=== PATIENT | male | born 1945 | race African-American/Black ===

== ENCOUNTER 2019-10-26 17:42 | Inpatient (IN) | payer MEDICARE, OTHER ==
--- NOTE | 2019-10-26 17:49 | PDOC ---
Rapid Medical Evaluation Time Seen by Provider: 10/26/19 17:43 Medical Evaluation: 10/26/19 17:44 74 year old male pmhx of DM, HTN, HLD presenting with weakness and dizziness for 2 hours. states he almost syncopized. Also had associated vision changes. Pts also states he may not be compliant with DM medicines. No N/V/F/C PE: CTA RRR Benign Neuro Exam Plan: ACS vs DKA EKG CXR Labs Pt to precede to main ED for further treatment and care 10/26/19 17:51
[2019-10-26 18:08] VITALS: BMI 31.6
[2019-10-26 18:29] LABS: BASO % 0.4 % (0-2.0); EOS % 1.2 % (0-4.5); HEMATOCRIT 37.4 % (35.4-49); HEMOGLOBIN 12.7 GM/dL (11.7-16.9); LYMPH % 40.2 % (8-40); MCH 30.9 pg (25.7-33.7); MCHC 33.8 g/dl (32.0-35.9); MEAN CELL VOLUME 91.3 fl (80-96); MEAN PLT VOLUME 8.8 fl (7.5-11.1); MONO % 7.2 % (3.8-10.2); PLATELET COUNT 218 K/MM3 (134-434); RDW 14.1 % (11.9-15.9); VENOUS BASE EXCESS -4.8 mmol/L (-2-2); VENOUS O2 SATURATION 89.5 % (70-80); VENOUS PCO2 38.2 mmHg (38-52); VENOUS PH 7.345 (7.310-7.410)
--- NOTE | 2019-10-26 18:40 | PDOC ---
Attending Attestation - Resident Resident Name: Reinaldo Reyes - ED Attending Attestation I have performed the following: I have examined & evaluated the patient, The case was reviewed & discussed with the resident, I agree w/resident's findings & plan, Exceptions are as noted - HPI HPI: 10/26/19 18:48 74yo M hx CKD, HTN DM, HLD presents to the ED with acute onset of L sided weakness, blurry vision, - Medical Decision Making 10/26/19 18:52 74yo M presents to the ED with resolved L sided weakness, blurry vision, an DDx includes TIA vs infectious pathology vs metabolic disarray. FS 239, unlikely DKA or HHS CTH with no acute findings Plan for labs, UA, CXR Anticipate admission
[2019-10-26 18:49] LABS: INR 1.02 (0.83-1.09)
[2019-10-26 18:51] LABS: ACTIVATED PTT 29.8 SECONDS (25.2-36.5)
[2019-10-26 19:02] LABS: ALK PHOS 83 U/L (45-117); ANION GAP 7 MMOL/L (8-16); BILIRUBIN,TOTAL 0.4 mg/dL (0.2-1); BLOOD UREA NITROGEN 23.6 mg/dL (7-18); CALCIUM 9.1 mg/dL (8.5-10.1); CHLORIDE 106 mmol/L (98-107); CO2 25 mmol/L (21-32); CREATININE 1.7 mg/dL (0.55-1.3); GLUCOSE,RANDOM 263 mg/dL (74-106); N-TERMINAL BNP 52.4 pg/ml (5-125); POTASSIUM 4.3 mmol/L (3.5-5.1); SGOT/AST 28 U/L (15-37); SGPT/ALT 41 U/L (13-61); SODIUM 138 mmol/L (136-145); TOT PROT 7.5 g/dl (6.4-8.2)
[2019-10-26 19:44] LABS: CHOLESTEROL 141 mg/dL (50-200); HDL CHOLESTEROL 55 mg/dL (40-60); LDL CHOLESTEROL (ONLY SJRH) 79 mg/dL (5-100); TRIGLYCERIDES 142 mg/dL (0-150)
--- NOTE | 2019-10-26 19:53 | PDOC ---
History of Present Illness - General Chief Complaint: Lightheaded Stated Complaint: DIZZINESS Time Seen by Provider: 10/26/19 17:43 - History of Present Illness Initial Comments: 10/26/19 19:49 74yo M w/ pmh HTN, DM2, poor medicine compliance, and HDL p/w weakness L>R + blurry vision x1.5hours today. [place] the [place]/ and felt weak, especially in his lower extremities. He thought low sugar, so he ate something and went home w/ . At home he felt much weaker, L>>R. He then came to the hospital. +Blurry vision since yesterday. Now resolved. denies facial asymmetry, loss of balance, Pt denies n/v/diarrhea/similar episodes, aphasia, ataxia, vision loss. Denies recent fevers, cough, rashes, sore throat, Pt states he is prescribed a DM medicine that gives him palpitations, so he hasn't taken it in >3weeks and his palpitations have been absent for at least 1 week. PMH: HTN, DM2, HDL PSH: remote hernia FHx: CVA in immediate family SHx: denies smoking, EtOH, illicit drug use. Rx: Glypizide, losartan, ramiril, jiardiance, metoprolol allergies: NKA NIHSS score of 2 +1 for limb ataxia (L heel to barton was not as straight as was the R) + for limb sensation (LLE sensation was decreased compared to RLE) ROS ROS CONSTITUTIONAL: Absent: fever, chills, diaphoresis HEENT: Absent: rhinorrhea, nasal congestion, throat pain CARDIOVASCULAR: Absent: chest pain, syncope, palpitations, irregular heart rate, lightheadedness, peripheral edema RESPIRATORY: Absent: cough, shortness of breath, dyspnea with exertion, GASTROINTESTINAL: Absent: abdominal pain, abdominal distension, nausea, vomiting, diarrhea, constipation, GENITOURINARY: Absent: dysuria, frequency, urgency, hesitancy, hematuria, flank pain MUSCULOSKELETAL: Absent: myalgia, arthralgia, joint swelling SKIN: Absent: rash, itching, pallor NEUROLOGIC: Absent: headache, bladder or bowel incontinence PSYCHIATRIC: Absent: anxiety, depression, suicidal or homicidal ideation, hallucinations. PE GENERAL: Well developed, well nourished. Awake and alert. No acute distress. HEENT: Normocephalic, atraumatic. PERRLA, EOMI. No conjunctival pallor. Sclera are non- icteric. Moist mucous membranes. Oropharynx is clear. NECK: Supple. Full ROM. No JVD. No thyromegaly. No lymphadenopathy. CARDIOVASCULAR: Regular rate and rhythm. No murmurs, rubs, or gallops. Distal pulses are 2+ and symmetric. PULMONARY: No evidence of respiratory distress. Lungs clear to auscultation bilaterally. No wheezing, rales or rhonchi. ABDOMINAL: Soft. Non-tender. Non-distended. No rebound or guarding. No organomegaly. Normoactive bowel sounds. MUSCULOSKELETAL Normal range of motion at all joints. No bony deformities or tenderness. No CVA tenderness. EXTREMITIES: No cyanosis. No clubbing. No edema. No calf tenderness. SKIN: Warm and dry. Normal capillary refill. No rashes. No jaundice. NEUROLOGICAL: NEURO: Mental status: The patient is oriented x3. Cranial nerves: Cranial nerves II through XII are intact Motor: The upper extremities are 5 over 5 in all muscle groups. The lower extremities are 5 over 5 in all muscle groups. Sensation: Sensation is intact to light touch in upper extremities and Compared to RLE, slightly decreased in LLE. Cerebellar: Zghbrq-swtqko-jnho is normal in both upper extremities. Bscf-atmo-[id number] is normal in RLE lower extremity and hesitant on LLE Reflexes: Negative Babinski test Gait: normal and Tandem gait deferred PSYCHIATRIC: Cooperative. Good eye contact. Appropriate mood and affect. Plan: 1. Consult Neurology 2. Admit for cardiac and neurological assessment. 10/26/19 19:54 10/26/19 20:52 CONSTITUTIONAL: Absent: fever, chills, diaphoresis, generalized weakness, malaise, loss of appetite HEENT: Absent: rhinorrhea, nasal congestion, throat pain, throat swelling, difficulty swallowing, mouth swelling, ear pain, eye pain, visual Changes CARDIOVASCULAR: Absent: chest pain, syncope, palpitations, irregular heart rate, lighthea dedness, peripheral edema RESPIRATORY: Absent: cough, shortness of breath, dyspnea with exertion, orthopnea, wheezing, stridor, hemoptysis GASTROINTESTINAL: Absent: abdominal pain, abdominal distension, nausea, vomiting, diarrhea, constipation, melena, hematochezia GENITOURINARY: Absent: dysuria, frequency, urgency, hesitancy, hematuria, flank pain, genital pain MUSCULOSKELETAL: Absent: myalgia, arthralgia, joint swelling SKIN: Absent: rash, itching, pallor HEMATOLOGIC/IMMUNOLOGIC: Absent: easy bleeding, easy bruising, lymphadenopathy, frequent infections ENDOCRINE: Absent: unexplained weight gain, unexplained weight loss, heat intolerance, cold intolerance NEUROLOGIC: Absent: headache, focal weakness or paresthesias, dizziness, unsteady gait, seizure, mental status changes, bladder or bowel incontinence 10/26/19 21:05 10/26/19 21:29 10/26/19 21:32 10/26/19 23:37 Past History - Medical History Allergies/Adverse Reactions: Allergies Allergy/AdvReac Type Severity Reaction Status Date / Time No Known Allergies Allergy Verified 10/26/19 17:46 Home Medications: Ambulatory Orders Atorvastatin Ca [Lipitor] 10 mg PO HS 10/26/19 Empagliflozin [Jardiance] 25 mg PO DAILY 10/26/19 Glipizide/Metformin HCl [Glipizide-Metformin 5-500 mg] 1 each PO TID 10/26/19 Ramipril 5 mg PO DAILY 10/26/19 Semaglutide [Ozempic] 1 mg SQ DAILY 10/26/19 COPD: No Diabetes: Yes HTN: Yes Other medical history: HLD - Psycho-Social/Smoking History Smoking History: Never smoked - Substance Abuse Hx (Audit-C & DAST Scrn) How often the patient has a drink containing alcohol: Never Score: In Men: 4 or > Positive; In Women: 3 or > Positive: 0 Screen Result (Pos requires Nsg. Audit-10AR): Negative In the last yr the pt used illegal drug/Rx for NonMed reason: No Score: Yes response is considered Positive: 0 Screen Result (Positive result requires Nsg. DAST-10): Negative *Physical Exam - Vital Signs Last Vital Signs Temp Pulse Resp BP Pulse Ox 97.9 F 72 18 116/51 L 99 10/26/19 17:44 10/26/19 17:44 10/26/19 17:44 10/26/19 17:44 10/26/19 17:44 ED Treatment Course - LABORATORY CBC & Chemistry Diagram: 10/26/19 18:00 10/26/19 18:00 - ADDITIONAL ORDERS Additional order review: Laboratory Results 10/26/19 10/26/19 10/26/19 18:42 18:00 18:00 PT with INR INR PTT (Actin FS) VBG pH POC VBG pCO2 POC VBG pO2 VBG HCO3 VBG O2 Sat (Nicol) VBG Base Excess Sodium 138 Potassium 4.3 Chloride 106 Carbon Dioxide 25 Anion Gap 7 L BUN 23.6 H Creatinine 1.7 H Est GFR (CKD-EPI)AfAm 45.04 Est GFR (CKD-EPI)NonAf 38.86 POC Glucometer 239 Random Glucose 263 H Calcium 9.1 Total Bilirubin 0.4 AST 28 ALT 41 Alkaline Phosphatase 83 Creatine Kinase 203 Creatine Kinase Index 0.7 CK-MB (CK-2) 1.5 Troponin I < 0.02 B-Natriuretic Peptide 52.4 Total Protein 7.5 Albumin 4.0 Triglycerides 142 Cholesterol 141 Total LDL Cholesterol 79 HDL Cholesterol 55 Beta-Hydroxybutyrate 1.9 10/26/19 10/26/19 18:00 18:00 PT with INR 12.00 INR 1.02 PTT (Actin FS) 29.8 VBG pH 7.345 POC VBG pCO2 38.2 POC VBG pO2 59.3 H VBG HCO3 20.4 L VBG O2 Sat (Nicol) 89.5 H VBG Base Excess -4.8 L Sodium Potassium Chloride Carbon Dioxide Anion Gap BUN Creatinine Est GFR (CKD-EPI)AfAm Est GFR (CKD-EPI)NonAf POC Glucometer Random Glucose Calcium Total Bilirubin AST ALT Alkaline Phosphatase Creatine Kinase Creatine Kinase Index CK-MB (CK-2) Troponin I B-Natriuretic Peptide Total Protein Albumin Triglycerides Cholesterol Total LDL Cholesterol HDL Cholesterol Beta-Hydroxybutyrate 10/26/19 10/26/19 18:42 18:00 RBC 4.10 MCV 91.3 MCHC 33.8 RDW 14.1 MPV 8.8 Neutrophils % 51.0 D Lymphocytes % 40.2 H D Monocytes % 7.2 Eosinophils % 1.2 Basophils % 0.4 POC Glucometer 239 Discharge - Discharge Information Problems reviewed: Yes Clinical Impression/Diagnosis: TIA (transient ischemic attack) Condition: Stable - Admission Yes - Follow up/Referral - Patient Discharge Instructions - Post Discharge Activity
[2019-10-27 06:55] LABS: INR 0.99 (0.83-1.09); PROTHROMBIN TIME (PATIENT) 11.7 SEC (9.7-13.0)
[2019-10-27 06:58] LABS: ACTIVATED PTT 29.4 SECONDS (25.2-36.5)
--- NOTE | 2019-10-27 08:07 | HP ---
Admitting History and Physical - Primary Care Physician PCP: tessie cleveland - Admission History of Present Illness: 74yo M w/ pmh HTN, DM2, poor medicine compliance, and HDL p/w weakness L>R + blurry vision x1.5hours today. [place] the [place] w/ and felt weak, especi ally in his lower extremities. He thought low sugar, so he ate something and went home w/ . At home he felt much weaker, L>>R. He then came to the hospital. +Blurry vision since yesterday. Now resolved. denies facial asymmetry, loss of balance, Pt denies n/v/diarrhea/similar episodes, aphasia, ataxia, vision loss. Denies recent fevers, cough, rashes, sore throat, Pt states he is prescribed a DM medicine that gives him palpitations, so he hasn't taken it in >3weeks and his palpitations have been absent for at least 1 week. 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: Yes: Peripheral Neuropathy Renal/: Yes: Renal Failure Musculoskeletal: Yes: Chronic low back pain - Smoking History Smoking history: Never smoked Home Medications - Allergies Allergies/Adverse Reactions: Allergies Allergy/AdvReac Type Severity Reaction Status Date / Time No Known Allergies Allergy Verified 10/26/19 17:46 - Home Medications Home Medications: Ambulatory Orders Atorvastatin Ca [Lipitor] 10 mg PO HS 10/26/19 Empagliflozin [Jardiance] 25 mg PO DAILY 10/26/19 Glipizide/Metformin HCl [Glipizide-Metformin 5-500 mg] 1 each PO TID 10/26/19 Ramipril 5 mg PO DAILY 10/26/19 Semaglutide [Ozempic] 1 mg SQ DAILY 10/26/19 Physical Examination Vital Signs: Vital Signs Temperature 98.2 F 10/27/19 06:00 Pulse Rate 67 10/27/19 06:00 Respiratory Rate 19 10/27/19 06:00 Blood Pressure 153/66 10/27/19 06:00 O2 Sat by Pulse Oximetry (%) 99 10/26/19 23:00 Labs: CBC, BMP 10/26/19 18:00 10/26/19 18:00 Problem List - Problems (1) Amaurosis fugax Code(s): G45.3 - AMAUROSIS FUGAX (2) BPH (benign prostatic hyperplasia) Code(s): N40.0 - BENIGN PROSTATIC HYPERPLASIA WITHOUT LOWER URINRY TRACT SYMP (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 (4) CVA (cerebral vascular accident) Code(s): I63.9 - CEREBRAL INFARCTION, UNSPECIFIED (5) Diabetes Code(s): E11.9 - TYPE 2 DIABETES MELLITUS WITHOUT COMPLICATIONS (6) Diabetic retinopathy Code(s): E11.319 - TYPE 2 DIABETES W UNSP DIABETIC RTNOP W/O MACULAR EDEMA (7) Raised prostate specific antigen Code(s): R97.20 - ELEVATED PROSTATE SPECIFIC ANTIGEN [PSA] (8) Renal failure (ARF), acute on chronic Code(s): N17.9 - ACUTE KIDNEY FAILURE, UNSPECIFIED; N18.9 - CHRONIC KIDNEY DISEASE, UNSPECIFIED (9) TIA (transient ischemic attack) Code(s): G45.9 - TRANSIENT CEREBRAL ISCHEMIC ATTACK, UNSPECIFIED Assessment/Plan (1) CVA (cerebral vascular accident) Code(s): I63.9 - CEREBRAL INFARCTION, UNSPECIFIED (2) Diabetes Code(s): E11.9 - TYPE 2 DIABETES MELLITUS WITHOUT COMPLICATIONS (3) Renal failure (ARF), acute on chronic Code(s): N17.9 - ACUTE KIDNEY FAILURE, UNSPECIFIED; N18.9 - CHRONIC KIDNEY DISEASE, UNSPECIFIED (4) Diabetic retinopathy Code(s): E11.319 - TYPE 2 DIABETES W UNSP DIABETIC RTNOP W/O MACULAR EDEMA (5) BPH (benign prostatic hyperplasia) Code(s): N40.0 - BENIGN PROSTATIC HYPERPLASIA WITHOUT LOWER URINRY TRACT SYMP (6) Raised prostate specific antigen Code(s): R97.20 - ELEVATED PROSTATE SPECIFIC ANTIGEN [PSA] (7) 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
[2019-10-27 10:14] LABS: URINE APPEARANCE Error; URINE BILIRUBIN NEGATIVE (NEGATIVE); URINE COLOR YELLOW; URINE GLUCOSE (UA) 3+ (NEGATIVE); URINE KETONE NEGATIVE (NEGATIVE); URINE LEUK ESTERASE NEGATIVE (NEGATIVE); URINE NITRITE NEGATIVE (NEGATIVE); URINE PROTEIN NEGATIVE (NEGATIVE); URINE UROBILINOGEN 0.2 mg/dL (0.2-1.0)
[2019-10-27] MEDS: ASPIRIN COATED 81 MG TABLET.EC PO SCH (10:35)
[2019-10-27] MEDS: SODIUM CHLORIDE 0.45% IV SCH (10:36)
--- NOTE | 2019-10-27 15:31 | CON.NEURO ---
Consult - Smoking History Smoking history: Never smoked Home Medications - Allergies Allergies/Adverse Reactions: Allergies Allergy/AdvReac Type Severity Reaction Status Date / Time No Known Allergies Allergy Verified 10/26/19 17:46 - Home Medications Home Medications: Ambulatory Orders Atorvastatin Ca [Lipitor] 10 mg PO HS 10/26/19 Empagliflozin [Jardiance] 25 mg PO DAILY 10/26/19 Glipizide/Metformin HCl [Glipizide-Metformin 5-500 mg] 1 each PO TID 10/26/19 Ramipril 5 mg PO DAILY 10/26/19 Semaglutide [Ozempic] 1 mg SQ DAILY 10/26/19 Physical Exam-Neuro Vital Signs: Vital Signs Temperature 97.7 F 10/27/19 13:53 Pulse Rate 88 10/27/19 13:53 Respiratory Rate 18 10/27/19 13:53 Blood Pressure 148/64 10/27/19 13:53 O2 Sat by Pulse Oximetry (%) 98 10/27/19 13:53 Labs: CBC, BMP 10/26/19 18:00 10/26/19 18:00 INR, PTT INR 0.99 (0.83-1.09) 10/27/19 06:25 Assessment/Plan cc Possible TIA HPI 74 year old male history of HTN,DM . He denies history of cad, stroke or smoking. pateint was in mall with hiswife and feelt dizzy, weak in his leg. andthere was more weakness on left side than right, and blurring of vision. His symptoms lasted for two hours. He ate sugare without any significant relief, and whenhewas not feeling better he came othospital. There was no other focal neurological syptoms, no prior episode before. His initial ct head wasnormal. Allergies/Adverse Reactions: Allergies Allergy/AdvReac Type Severity Reaction Status Date / Time No Known Allergies Allergy Verified 10/26/19 17:46 Home Medications: Atorvastatin Ca [Lipitor] 10 mg PO HS 10/26/19 Empagliflozin [Jardiance] 25 mg PO DAILY 10/26/19 Glipizide/Metformin HCl [Glipizide-Metformin 5-500 mg] 1 each PO TID 10/26/19 Ramipril 5 mg PO DAILY 10/26/19 Semaglutide [Ozempic] 1 mg SQ DAILY 10/26/19 ROS,FH,SH reviwed in chart NEUROLOGICAL EXAMINATION Alert oriented x 3 speech is normal, vss eomi, pupils reactive no face asymmetry motor 5/5 all ext sensation is normal ct head and carotid ultrasound isnormal mri ofbrain isnormal Assessment/Plan Transient neurological symptoms( weakness in leg, L>R, Blurring of vision) , likely to be tia, so far work up negative. symptoms resolved. ct head, neuro exam and carotid ultrasound is normal. mr ofbrain is pending. Plan: continue statin , aspirin - mri ofbrain - life style modifications, stroke education - if mri of brain is normal, patient can be discharged home. Thanking you so much Moisés Mays MD
[2019-10-27] MEDS: glyBURIDE 5 MG TABLET PO SCH (15:54)
[2019-10-27] MEDS ORDERED: PT OWN MED DRAWER 7, Y5N ONE (16:37)
[2019-10-27] MEDS: ATORVASTATIN CA 20 MG TABLET (FP) PO SCH (22:38)
[2019-10-28] MEDS ORDERED: PT OWN MED DRAWER 7, Y5N ONE ×2 (04:58→17:02)
[2019-10-28] MEDS: glyBURIDE 5 MG TABLET PO SCH ×2 (06:38→17:07)
[2019-10-28] MEDS ORDERED: TAMSULOSIN HCL 0.4 MG CAP PO SCH (08:30)
[2019-10-28] MEDS: ASPIRIN COATED 81 MG TABLET.EC PO SCH (09:11)
[2019-10-28] MEDS: TAMSULOSIN HCL 0.4 MG CAP PO SCH (09:11)
[2019-10-28] MEDS: SODIUM CHLORIDE 0.45% IV SCH (09:12)
--- NOTE | 2019-10-28 13:32 | PN ---
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 No Fever No SOB Pt is still in isolation pending COVID-19 Test results No Chest pain - Current Medication List Current Medications: Active Medications Aspirin (Ecotrin -) 81 mg PO DAILY [facility] Last Admin: 10/28/19 09:11 Dose: 81 mg Documented by: Atorvastatin Calcium (Lipitor -) 20 mg PO HS [facility] Last Admin: 10/27/19 22:38 Dose: 20 mg Documented by: Glyburide (Diabeta -) 5 mg PO BID@0700,1630 [facility] Last Admin: 10/28/19 06:38 Dose: 5 mg Documented by: Sodium Chloride (1/2 Normal Saline) 1,005 mls @ 75 mls/hr IV ASDIR [facility] Last Admin: 10/28/19 09:12 Dose: Not Given Documented by: Metoprolol Succinate (Toprol Xl -) 50 mg PO DAILY [facility] Last Admin: 10/28/19 09:11 Dose: 50 mg Documented by: Sitagliptin Phosphate (Januvia -) 100 mg PO DAILY@0700 [facility] Last Admin: 10/28/19 06:38 Dose: 100 mg Documented by: Tamsulosin HCl (Flomax -) 0.4 mg PO DAILY@0830 [facility] Last Admin: 10/28/19 09:11 Dose: 0.4 mg Documented by: - Objective Vital Signs: Vital Signs Temperature 98 F 10/28/19 06:00 Pulse Rate 76 10/28/19 06:00 Respiratory Rate 18 10/28/19 06:00 Blood Pressure 133/64 10/28/19 06:00 O2 Sat by Pulse Oximetry (%) 96 10/28/19 06:00 Constitutional: Yes: No Distress Eyes: Yes: Conjunctiva Clear, EOM Intact HENT: Yes: Atraumatic, Normocephalic Neck: Yes: Supple, Trachea Midline Cardiovascular: Yes: Regular Rate and Rhythm Respiratory: Yes: Regular, CTA Bilaterally Gastrointestinal: Yes: Normal Bowel Sounds, Soft Musculoskeletal: Yes: Joint Stiffness Edema: No Peripheral Pulses WNL: Yes Labs: CBC, BMP 10/26/19 18:00 10/26/19 18:00 INR, PTT INR 0.99 (0.83-1.09) 10/27/19 06:25 Problem List - Problems (1) CVA (cerebral vascular accident) Code(s): I63.9 - CEREBRAL INFARCTION, UNSPECIFIED (2) Diabetes Code(s): E11.9 - TYPE 2 DIABETES MELLITUS WITHOUT COMPLICATIONS (3) Renal failure (ARF), acute on chronic Code(s): N17.9 - ACUTE KIDNEY FAILURE, UNSPECIFIED; N18.9 - CHRONIC KIDNEY DISEASE, UNSPECIFIED (4) Diabetic retinopathy Code(s): E11.319 - TYPE 2 DIABETES W UNSP DIABETIC RTNOP W/O MACULAR EDEMA (5) BPH (benign prostatic hyperplasia) Code(s): N40.0 - BENIGN PROSTATIC HYPERPLASIA WITHOUT LOWER URINRY TRACT SYMP (6) Raised prostate specific antigen Code(s): R97.20 - ELEVATED PROSTATE SPECIFIC ANTIGEN [PSA] (7) 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 (8) Amaurosis fugax Code(s): G45.3 - AMAUROSIS FUGAX Assessment/Plan (1) CVA (cerebral vascular accident) Code(s): I63.9 - CEREBRAL INFARCTION, UNSPECIFIED (2) Diabetes Code(s): E11.9 - TYPE 2 DIABETES MELLITUS WITHOUT COMPLICATIONS (3) Renal failure (ARF), acute on chronic Code(s): N17.9 - ACUTE KIDNEY FAILURE, UNSPECIFIED; N18.9 - CHRONIC KIDNEY DISEASE, UNSPECIFIED (4) Diabetic retinopathy Code(s): E11.319 - TYPE 2 DIABETES W UNSP DIABETIC RTNOP W/O MACULAR EDEMA (5) BPH (benign prostatic hyperplasia) Code(s): N40.0 - BENIGN PROSTATIC HYPERPLASIA WITHOUT LOWER URINRY TRACT SYMP (6) Raised prostate specific antigen Code(s): R97.20 - ELEVATED PROSTATE SPECIFIC ANTIGEN [PSA] (7) 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 we will discuss with Regards Vasculitis work up/ Adding Plavix
[2019-10-28 15:39] LABS: BASO % 0.8 % (0-2.0); EOS % 1.6 % (0-4.5); HEMATOCRIT 38.4 % (35.4-49); HEMOGLOBIN 12.8 GM/dL (11.7-16.9); LYMPH % 33.8 % (8-40); MCH 30.6 pg (25.7-33.7); MCHC 33.4 g/dl (32.0-35.9); MEAN CELL VOLUME 91.6 fl (80-96); MEAN PLT VOLUME 8.5 fl (7.5-11.1); MONO % 6.1 % (3.8-10.2); NEUT % 57.7 % (42.8-82.8); PLATELET COUNT 219 K/MM3 (134-434); RBC 4.19 M/mm3 (4.00-5.60); RDW 14.2 % (11.9-15.9); WHITE BLOOD COUNT 8.1 K/mm3 (4.0-10.0)
[2019-10-28 16:13] LABS: BLOOD UREA NITROGEN 22.2 mg/dL (7-18); CALCIUM 9.2 mg/dL (8.5-10.1); CREATININE 1.6 mg/dL (0.55-1.3); POTASSIUM 4.1 mmol/L (3.5-5.1)
[2019-10-28] MEDS: ATORVASTATIN CA 20 MG TABLET (FP) PO SCH (21:28)
[2019-10-29] MEDS ORDERED: PT OWN MED DRAWER 7, Y5N ONE ×2 (06:29→16:06)
[2019-10-29] MEDS: glyBURIDE 5 MG TABLET PO SCH ×2 (07:04→16:10)
[2019-10-29 07:59] LABS: BASO % 0.4 % (0-2.0); EOS % 1.6 % (0-4.5); HEMATOCRIT 37.8 % (35.4-49); HEMOGLOBIN 12.6 GM/dL (11.7-16.9); LYMPH % 41.4 % (8-40); MCH 30.3 pg (25.7-33.7); MCHC 33.3 g/dl (32.0-35.9); MEAN PLT VOLUME 8.7 fl (7.5-11.1); MONO % 7.3 % (3.8-10.2); NEUT % 49.3 % (42.8-82.8); PLATELET COUNT 218 K/MM3 (134-434); RBC 4.15 M/mm3 (4.00-5.60); RDW 14.6 % (11.9-15.9)
[2019-10-29 08:03] LABS: BLOOD UREA NITROGEN 19.8 mg/dL (7-18); CREATININE 1.3 mg/dL (0.55-1.3); POTASSIUM 4.2 mmol/L (3.5-5.1)
[2019-10-29] MEDS: TAMSULOSIN HCL 0.4 MG CAP PO SCH (09:09)
[2019-10-29] MEDS: ASPIRIN COATED 81 MG TABLET.EC PO SCH (09:09)
[2019-10-29] MEDS: SODIUM CHLORIDE 0.45% IV SCH (09:09)
[2019-10-29 09:48] LABS: ERYTHROCYTE SEDIMENTATION RATE 32 mm/hr (0-20)
--- NOTE | 2019-10-29 15:15 | PN ---
Progress Note, Physician History of Present Illness: Pt has no more syncopal episodes No Fever No SOB No chest pain No palpiations - Current Medication List Current Medications: Active Medications Aspirin (Ecotrin -) 81 mg PO DAILY [facility] Last Admin: 10/29/19 09:09 Dose: 81 mg Documented by: Atorvastatin Calcium (Lipitor -) 20 mg PO HS [facility] Last Admin: 10/28/19 21:28 Dose: 20 mg Documented by: Glyburide (Diabeta -) 5 mg PO BID@0700,1630 [facility] Last Admin: 10/29/19 07:04 Dose: Not Given Documented by: Sodium Chloride (1/2 Normal Saline) 1,005 mls @ 75 mls/hr IV ASDIR [facility] Last Admin: 10/29/19 09:09 Dose: 75 mls/hr Documented by: Metoprolol Succinate (Toprol Xl -) 50 mg PO DAILY [facility] Last Admin: 10/29/19 09:09 Dose: 50 mg Documented by: Sitagliptin Phosphate (Januvia -) 100 mg PO DAILY@0700 [facility] Last Admin: 10/29/19 06:37 Dose: 100 mg Documented by: Tamsulosin HCl (Flomax -) 0.4 mg PO DAILY@0830 [facility] Last Admin: 10/29/19 09:09 Dose: 0.4 mg Documented by: - Objective Vital Signs: Vital Signs Temperature 97.9 F 10/29/19 05:05 Pulse Rate 70 10/29/19 05:05 Respiratory Rate 19 10/29/19 05:05 Blood Pressure 153/75 10/29/19 05:05 O2 Sat by Pulse Oximetry (%) 99 10/29/19 09:00 Constitutional: Yes: No Distress Eyes: Yes: Conjunctiva Clear, EOM Intact HENT: Yes: Atraumatic, Normocephalic Neck: Yes: Supple, Trachea Midline Cardiovascular: Yes: Regular Rate and Rhythm, S1, S2 Respiratory: Yes: Regular, CTA Bilaterally Gastrointestinal: Yes: Normal Bowel Sounds, Soft Musculoskeletal: Yes: Joint Stiffness Edema: No Peripheral Pulses WNL: Yes Neurological: Yes: Alert, Oriented, Cran Nerves II-XII Intact Labs: CBC, BMP 10/29/19 06:54 10/29/19 06:54 INR, PTT INR 0.99 (0.83-1.09) 10/27/19 06:25 Problem List - Problems (1) Amaurosis fugax Code(s): G45.3 - AMAUROSIS FUGAX (2) BPH (benign prostatic hyperplasia) Code(s): N40.0 - BENIGN PROSTATIC HYPERPLASIA WITHOUT LOWER URINRY TRACT SYMP (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 (4) CVA (cerebral vascular accident) Code(s): I63.9 - CEREBRAL INFARCTION, UNSPECIFIED (5) Diabetes Code(s): E11.9 - TYPE 2 DIABETES MELLITUS WITHOUT COMPLICATIONS (6) Diabetic retinopathy Code(s): E11.319 - TYPE 2 DIABETES W UNSP DIABETIC RTNOP W/O MACULAR EDEMA (7) Raised prostate specific antigen Code(s): R97.20 - ELEVATED PROSTATE SPECIFIC ANTIGEN [PSA] (8) Renal failure (ARF), acute on chronic Code(s): N17.9 - ACUTE KIDNEY FAILURE, UNSPECIFIED; N18.9 - CHRONIC KIDNEY DISEASE, UNSPECIFIED (9) TIA (transient ischemic attack) Code(s): G45.9 - TRANSIENT CEREBRAL ISCHEMIC ATTACK, UNSPECIFIED Assessment/Plan (1) CVA (cerebral vascular accident) Code(s): I63.9 - CEREBRAL INFARCTION, UNSPECIFIED (2) Diabetes Code(s): E11.9 - TYPE 2 DIABETES MELLITUS WITHOUT COMPLICATIONS (3) Renal failure (ARF), acute on chronic Code(s): N17.9 - ACUTE KIDNEY FAILURE, UNSPECIFIED; N18.9 - CHRONIC KIDNEY DISEASE, UNSPECIFIED (4) Diabetic retinopathy Code(s): E11.319 - TYPE 2 DIABETES W UNSP DIABETIC RTNOP W/O MACULAR EDEMA (5) BPH (benign prostatic hyperplasia) Code(s): N40.0 - BENIGN PROSTATIC HYPERPLASIA WITHOUT LOWER URINRY TRACT SYMP (6) Raised prostate specific antigen Code(s): R97.20 - ELEVATED PROSTATE SPECIFIC ANTIGEN [PSA] (7) 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
[2019-10-29] MEDS ORDERED: CLOPIDOGREL BISULFATE 75 MG TABLET (FP) PO SCH (15:30)
[2019-10-29] MEDS: ATORVASTATIN CA 20 MG TABLET (FP) PO SCH (21:46)
[2019-10-30] MEDS ORDERED: PT OWN MED DRAWER 7, Y5N ONE ×2 (06:25→16:18)
[2019-10-30] MEDS: glyBURIDE 5 MG TABLET PO SCH ×2 (06:28→16:51)
[2019-10-30] MEDS: ASPIRIN COATED 81 MG TABLET.EC PO SCH (09:05)
[2019-10-30] MEDS: TAMSULOSIN HCL 0.4 MG CAP PO SCH (09:05)
--- NOTE | 2019-10-30 10:24 | EKG ---
Test Reason : Blood Pressure : / mmHG Vent. Rate : 074 BPM Atrial Rate : 074 BPM P-R Int : 214 ms QRS Dur : 074 ms QT Int : 388 ms P-R-T Axes : 055 -09 071 degrees QTc Int : 430 ms SINUS RHYTHM WITH 1ST DEGREE A-V BLOCK POSSIBLE LEFT ATRIAL ENLARGEMENT LEFT VENTRICULAR HYPERTROPHY CANNOT RULE OUT SEPTAL INFARCT , AGE UNDETERMINED ABNORMAL ECG NO PREVIOUS ECGS AVAILABLE Confirmed by Olga Malloy ([id number]) on 10/30/2019 10:23:34 AM Referred By: Confirmed By:Olga Malloy
--- NOTE | 2019-10-30 10:49 | ECHO ---
Name: DG GONZALEZ Exam:Adult Echocardiogram Study Date: 10/30/2019 08:49 AM Age: 74 yrs Reason For Study: h/o TIA/CVA r/o mural thrombus dr raju pmd MMode/2D Measurements & Calculations IVSd: 1.1 cm Ao root diam: 2.9 cm LVIDd: 3.4 cm LA dimension: 3.8 cm LVIDs: 2.4 cm ACS: 1.5 cm LVPWd: 1.3 cm LVPWs: 1.8 cm EDV(Teich): 46.3 ml ESV(Teich): 20.4 ml LVOT diam: 1.9 cm LAV (MOD-bp): 54.0 ml RV S Chalino: 12.7 cm/sec Doppler Measurements & Calculations MV E max chalino: 80.5 cm/sec Ao V2 max: 195.5 cm/sec MV A max chalino: 103.2 cm/sec Ao max P.3 mmHg MV E/A: 0.78 INDERJIT(V,D): 1.5 cm2 MV dec time: 0.20 sec LV V1 max P.3 mmHg PA V2 max: 123.5 cm/sec LV V1 max: 103.7 cm/sec PA max P.1 mmHg Med Peak E' Chalino: 6.6 cm/sec Med E/e': 12.2 Lat Peak E' Chalino: 11.0 cm/sec Lat E/e': 7.3 Procedure Study Quality: Fair. Left Ventricle The left ventricle is normal in size. There is borderline concentric left ventricular hypertrophy. Th e left ventricular ejection fraction is normal. Ejection Fraction = 55-60%. The transmitral spectral Doppler flow pattern is suggestive of impaired LV relaxation. Right Ventricle The right ventricle is normal in size and function. Atria Normal left and right atrial size and function. Mitral Valve The mitral valve is grossly normal. There is no mitral regurgitation noted. Tricuspid Valve The tricuspid valve is not well visualized, but is grossly normal. There is trace tricuspid regurgita tion. Aortic Valve There is mild to moderate aortic sclerosis.;. No hemodynamically significant valvular aortic stenosis . No aortic regurgitation is present. Pulmonic Valve The pulmonic valve is not well visualized. Great Vessels The aortic root is normal size. Pericardium/Pleura There is no pericardial effusion. Interpretation Summary LV: Normal size,bordeline LVH,normal systolic function EF 60-65%,impaired relaxation RV: Normal AV: Sclerotic No significant valvular dysfunction. Olga Malloy 10/30/2019 10:49 AM
--- NOTE | 2019-10-30 17:17 | PN ---
Progress Note (short form) - Note Progress Note: 74 year old male history of HTN,DM . He denies history of cad, stroke or smoking. pateint was in mall with hiswife and feelt dizzy, weak in his leg. andthere was more weakness on left side than right, and blurring of vision. His symptoms lasted for two hours. He ate sugare without any significant relief, and whenhewas not feeling better he came [facility]ospital. There was no other focal neurological syptoms, no prior episode before. His initial ct head wasnormal. right periventricular acute infarct and post thalamic infarct, symptoms resolved he was taking apsirin and low dose of lipitor at home NEUROLOGICAL EXAMINATION Alert oriented x 3 speech is normal, vss eomi, pupils reactive no face asymmetry motor 5/5 all ext sensation is normal ct head and carotid ultrasound isnormal mri fo brain showed there is right periventricular ischemic lesion c Assessment/Plan Transient neurological symptoms( weakness in leg, L>R, Blurring of vision) , ischemic stroke in post thalamic region symptoms resolved. ct head, neuro exam and carotid ultrasound is normal. Plan: increase lipitor to 40 mg once a day and plavix - mri ofbrain result reviewed - life style modifications, stroke education Thanking you so much Moisés Mays MD
[2019-10-30] MEDS: CLOPIDOGREL BISULFATE 75 MG TABLET (FP) PO SCH (17:29)
[2019-10-30] MEDS: SODIUM CHLORIDE 0.45% IV SCH (18:15)
--- NOTE | 2019-10-30 19:49 | PN ---
Progress Note, Physician History of Present Illness: Pt is stable ECHO reviwed Sclerotic Aortic valve but no stenosis EF : Normal - Current Medication List Current Medications: Active Medications Atorvastatin Calcium (Lipitor -) 40 mg PO [facility] Clopidogrel Bisulfate (Plavix -) 75 mg PO DAILY [facility] Last Admin: 10/30/19 17:29 Dose: 75 mg Documented by: Glyburide (Diabeta -) 5 mg PO BID@0700,1630 [facility] Last Admin: 10/30/19 16:51 Dose: 5 mg Documented by: Metoprolol Succinate (Toprol Xl -) 50 mg PO DAILY [facility] Last Admin: 10/30/19 09:04 Dose: 50 mg Documented by: Sitagliptin Phosphate (Januvia -) 100 mg PO DAILY@0700 [facility] Last Admin: 10/30/19 06:28 Dose: 100 mg Documented by: Tamsulosin HCl (Flomax -) 0.4 mg PO DAILY@0830 [facility] Last Admin: 10/30/19 09:05 Dose: 0.4 mg Documented by: - Objective Vital Signs: Vital Signs Temperature 98.6 F 10/30/19 18:00 Pulse Rate 77 10/30/19 18:00 Respiratory Rate 18 10/30/19 18:00 Blood Pressure 126/64 10/30/19 18:00 O2 Sat by Pulse Oximetry (%) 97 10/30/19 18:00 Constitutional: Yes: No Distress Eyes: Yes: Conjunctiva Clear, EOM Intact HENT: Yes: Atraumatic, Normocephalic Neck: Yes: Supple, Trachea Midline Cardiovascular: Yes: Regular Rate and Rhythm, S1, S2 Respiratory: Yes: Regular, CTA Bilaterally Gastrointestinal: Yes: Normal Bowel Sounds, Soft Musculoskeletal: Yes: Joint Stiffness Edema: No Peripheral Pulses WNL: Yes Labs: CBC, BMP 10/29/19 06:54 10/29/19 06:54 INR, PTT INR 0.99 (0.83-1.09) 10/27/19 06:25 Problem List - Problems (1) Amaurosis fugax Code(s): G45.3 - AMAUROSIS FUGAX (2) BPH (benign prostatic hyperplasia) Code(s): N40.0 - BENIGN PROSTATIC HYPERPLASIA WITHOUT LOWER URINRY TRACT SYMP (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 (4) CVA (cerebral vascular accident) Code(s): I63.9 - CEREBRAL INFARCTION, UNSPECIFIED (5) Diabetes Code(s): E11.9 - TYPE 2 DIABETES MELLITUS WITHOUT COMPLICATIONS (6) Diabetic retinopathy Code(s): E11.319 - TYPE 2 DIABETES W UNSP DIABETIC RTNOP W/O MACULAR EDEMA (7) Raised prostate specific antigen Code(s): R97.20 - ELEVATED PROSTATE SPECIFIC ANTIGEN [PSA] (8) Renal failure (ARF), acute on chronic Code(s): N17.9 - ACUTE KIDNEY FAILURE, UNSPECIFIED; N18.9 - CHRONIC KIDNEY DISEASE, UNSPECIFIED (9) TIA (transient ischemic attack) Code(s): G45.9 - TRANSIENT CEREBRAL ISCHEMIC ATTACK, UNSPECIFIED Assessment/Plan (1) CVA (cerebral vascular accident) Code(s): I63.9 - CEREBRAL INFARCTION, UNSPECIFIED (2) Diabetes Code(s): E11.9 - TYPE 2 DIABETES MELLITUS WITHOUT COMPLICATIONS (3) Renal failure (ARF), acute on chronic Code(s): N17.9 - ACUTE KIDNEY FAILURE, UNSPECIFIED; N18.9 - CHRONIC KIDNEY DISEASE, UNSPECIFIED (4) Diabetic retinopathy Code(s): E11.319 - TYPE 2 DIABETES W UNSP DIABETIC RTNOP W/O MACULAR EDEMA (5) BPH (benign prostatic hyperplasia) Code(s): N40.0 - BENIGN PROSTATIC HYPERPLASIA WITHOUT LOWER URINRY TRACT SYMP (6) Raised prostate specific antigen Code(s): R97.20 - ELEVATED PROSTATE SPECIFIC ANTIGEN [PSA] (7) 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
[2019-10-30] MEDS ORDERED: ATORVASTATIN CA 40 MG TABLET (FP) PO SCH (22:00)
[2019-10-31] MEDS ORDERED: PT OWN MED DRAWER 7, Y5N ONE (06:25)
[2019-10-31] MEDS: glyBURIDE 5 MG TABLET PO SCH (06:28)
[2019-10-31] MEDS: CLOPIDOGREL BISULFATE 75 MG TABLET (FP) PO SCH (09:08)
[2019-10-31] MEDS: TAMSULOSIN HCL 0.4 MG CAP PO SCH (09:09)
[2019-10-31 10:06] VITALS: BP 153/85; PULSE 66; TEMP 98.3
--- NOTE | 2019-10-31 10:30 | PN ---
Progress Note, Physician History of Present Illness: Pt wanted to go home today Pt will see his opthalmologist for Amarousis Fugax No Chest pain No SOB NO Weakness pt will have all his meds intead of ASA Pt will be on plavix - Current Medication List Current Medications: Active Medications Atorvastatin Calcium (Lipitor -) 40 mg PO HS [facility] Last Admin: 10/30/19 21:53 Dose: 40 mg Documented by: Clopidogrel Bisulfate (Plavix -) 75 mg PO DAILY [facility] Last Admin: 10/31/19 09:08 Dose: 75 mg Documented by: Glyburide (Diabeta -) 5 mg PO BID@0700,1630 [facility] Last Admin: 10/31/19 06:28 Dose: 5 mg Documented by: Metoprolol Succinate (Toprol Xl -) 50 mg PO DAILY [facility] Last Admin: 10/31/19 09:08 Dose: 50 mg Documented by: Sitagliptin Phosphate (Januvia -) 100 mg PO DAILY@0700 [facility] Last Admin: 10/31/19 06:28 Dose: 100 mg Documented by: Tamsulosin HCl (Flomax -) 0.4 mg PO DAILY@0830 [facility] Last Admin: 10/31/19 09:09 Dose: 0.4 mg Documented by: - Objective Vital Signs: Vital Signs Temperature 98.3 F 10/31/19 10:03 Pulse Rate 66 10/31/19 10:03 Respiratory Rate 20 10/31/19 10:03 Blood Pressure 153/85 10/31/19 10:03 O2 Sat by Pulse Oximetry (%) 98 10/31/19 10:03 Constitutional: Yes: Calm Eyes: Yes: Conjunctiva Clear, EOM Intact HENT: Yes: Atraumatic, Normocephalic Neck: Yes: Supple, Trachea Midline Cardiovascular: Yes: Regular Rate and Rhythm, S1, S2 Respiratory: Yes: Regular, CTA Bilaterally Gastrointestinal: Yes: Normal Bowel Sounds, Soft Extremities: Yes: WNL Edema: No Peripheral Pulses WNL: Yes Labs: CBC, BMP 10/29/19 06:54 10/29/19 06:54 INR, PTT INR 0.99 (0.83-1.09) 10/27/19 06:25 Problem List - Problems (1) Amaurosis fugax Code(s): G45.3 - AMAUROSIS FUGAX (2) BPH (benign prostatic hyperplasia) Code(s): N40.0 - BENIGN PROSTATIC HYPERPLASIA WITHOUT LOWER URINRY TRACT SYMP (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 (4) CVA (cerebral vascular accident) Code(s): I63.9 - CEREBRAL INFARCTION, UNSPECIFIED (5) Diabetes Code(s): E11.9 - TYPE 2 DIABETES MELLITUS WITHOUT COMPLICATIONS (6) Diabetic retinopathy Code(s): E11.319 - TYPE 2 DIABETES W UNSP DIABETIC RTNOP W/O MACULAR EDEMA (7) Raised prostate specific antigen Code(s): R97.20 - ELEVATED PROSTATE SPECIFIC ANTIGEN [PSA] (8) Renal failure (ARF), acute on chronic Code(s): N17.9 - ACUTE KIDNEY FAILURE, UNSPECIFIED; N18.9 - CHRONIC KIDNEY DISEASE, UNSPECIFIED (9) TIA (transient ischemic attack) Code(s): G45.9 - TRANSIENT CEREBRAL ISCHEMIC ATTACK, UNSPECIFIED Assessment/Plan Pt will go home today Pt will have Opthal consult Pt will have Nuclear stress test as OP
--- NOTE | 2019-10-31 10:31 | DS ---
Physical Examination Vital Signs: Vital Signs Temperature 98.3 F 10/31/19 10:03 Pulse Rate 66 10/31/19 10:03 Respiratory Rate 20 10/31/19 10:03 Blood Pressure 153/85 10/31/19 10:03 O2 Sat by Pulse Oximetry (%) 98 10/31/19 10:03 Findings/Remarks: Discussed with Neurology Pt will have MRI Rt Periventricular and Rt Thalamus tiny multiple infarcts discussed with Neurology Pt will be on plavix ECHO : EF Normal Sclerotic aortic valve BECKY and Rheumatoid Factor Negative Constitutional: Yes: Calm Eyes: Yes: Conjunctiva Clear, EOM Intact HENT: Yes: Atraumatic, Normocephalic Neck: Yes: Supple, Trachea Midline Cardiovascular: Yes: Regular Rate and Rhythm, S1, S2 Respiratory: Yes: Regular, CTA Bilaterally Gastrointestinal: Yes: Normal Bowel Sounds, Soft Labs: CBC, BMP 10/29/19 06:54 10/29/19 06:54 Discharge Summary Problems reviewed: Yes Reason For Visit: WEAKNESS OF LEFT SIDE OF BODY Current Active Problems Amaurosis fugax (Acute) BPH (benign prostatic hyperplasia) (Acute) Balanoposthitis (Acute) CVA (cerebral vascular accident) (Acute) Diabetes (Acute) Diabetic retinopathy (Acute) Raised prostate specific antigen (Acute) Renal failure (ARF), acute on chronic (Acute) TIA (transient ischemic attack) (Acute) Condition: Stable - Instructions Referrals: Fernanda Arevalo MD [Primary Care Provider] - - Home Medications Comprehensive Discharge Medication List: Ambulatory Orders Atorvastatin Ca [Lipitor] 10 mg PO HS 10/26/19 Empagliflozin [Jardiance] 25 mg PO DAILY 10/26/19 Glipizide/Metformin HCl [Glipizide-Metformin 5-500 mg] 1 each PO TID 10/26/19 Ramipril 5 mg PO DAILY 10/26/19 Semaglutide [Ozempic] 1 mg SQ DAILY 10/26/19
--- NOTE | 2019-10-31 16:16 | PN ---
Progress Note (short form) - Note Progress Note: 74 year old male history of HTN,DM . He denies history of cad, stroke or smoking. pateint was in mall with hiswife and feelt dizzy, weak in his leg. andthere was more weakness on left side than right, and blurring of vision. His symptoms lasted for two hours. He ate sugare without any significant relief, and whenhewas not feeling better he came o[facility]ospital. There was no other focal neurological syptoms, no prior episode before. His initial ct head wasnormal. right periventricular acute infarct and post thalamic infarct, symptoms resolved no new complain, being discharged home. NEUROLOGICAL EXAMINATION Alert oriented x 3 speech is normal, vss eomi, pupils reactive no face asymmetry motor 5/5 all ext sensation is normal ct head and carotid ultrasound isnormal mri fo brain showed there is right periventricular ischemic lesion Assessment/Plan Transient neurological symptoms( weakness in leg, L>R, Blurring of vision) , ischemic stroke in post thalamic region symptoms resolved. ct head, neuro exam and carotid ultrasound is normal. Plan: increase lipitor to 40 mg once a day and plavix - mri ofbrain result reviewed - life style modifications, stroke education follow up outpatient Thanking you so much Moisés Mays MD
== END 2019-10-31 12:03 | disposition home or self-care (01) | DRG 65 ==
LOC: JER 17:42 → JERBED 18:58 → J4S 23:00
PROVIDERS: ADMIT Internal Medicine; ATTEND Internal Medicine
DX: I63.9 Cerebral infarction, unspecified (principal); G45.3 Amaurosis fugax; N17.9 Acute kidney failure, unspecified; E11.22 Type 2 diabetes mellitus with diabetic chronic kidney disease; I12.9 Hypertensive chronic kidney disease with stage 1 through stage 4 chronic kidney disease, or unspecified chronic kidney disease; E78.5 Hyperlipidemia, unspecified; N18.9 Chronic kidney disease, unspecified; Z91.14 Patient's other noncompliance with medication regimen; Z79.84 Long term (current) use of oral hypoglycemic drugs; N40.0 Benign prostatic hyperplasia without lower urinary tract symptoms; E11.319 Type 2 diabetes mellitus with unspecified diabetic retinopathy without macular edema; N47.6 Balanoposthitis
CPT/HCPCS: 36415; 70450-TC; 70551-TC; 71046-TC-FY; 80048; 80053; 80061; 81003; 82010; 82550; 82553; 82803; 82962; 83721; 83880; 84484; 85025; 85610; 85651; 85730; 86038; 86431; 86850; 86900; 86901; 93005; 93010; 93306-TC; 93880-TC; 97116-GP; 97161-GP; 99285-25; U0003

== ENCOUNTER 2019-11-09 16:13 | Inpatient (IN) | payer OTHER ==
[2019-11-09 16:21] VITALS: BMI 32.5
--- NOTE | 2019-11-09 16:37 | PDOC ---
History of Present Illness - General Chief Complaint: CVA/TIA Stated Complaint: R/O CVA History Source: Patient - History of Present Illness Initial Comments: 11/09/19 16:36 Juan Tamayo is a right-handed 74M with PMH HTN, T2DM, poor medicine compliance, and HLD sent by PMD Dr. Arevalo for CVA evaluation. Patient recently admitted to [facility] for TIA two weeks ago and discharged 4 days [employer], follows with Dr. Mays. MRI at that time shows lacunar infarcts to R periventricular white matter of the posterior right thalamus. Today presents with after being sent by PMD for new onset facial droop, arm weakness, and unsteady gait. Per , patient has had slurred speech since yesterday morning, had episode of new onset left arm weakness at 7PM after dinner noticed when he dropped a tea cup, and had a normal facial tone as of 10PM last night but noticed new onset facial droop at 8:30AM today. Patient also reports that he has had difficulty with vision, as his vision is normally perfect with glasses but now blurry, also has trouble walking with weakness in LLE. He and his play word board games at night and he has no cognitive deficits. Saw PMD today who immediately referred to [facility] ED for further evaluation. Denies chest pain, SOB, abd pain, urinary symptoms, coughing, sick contacts at home. Allergy to pineapple. No other PSH. Denies recent alcohol/drug/tobacco use. Past History - Medical History Allergies/Adverse Reactions: Allergies Allergy/AdvReac Type Severity Reaction Status Date / Time pineapple Allergy Verified 10/30/19 10:14 Home Medications: Ambulatory Orders Atorvastatin Ca [Lipitor] 10 mg PO HS 10/26/19 Empagliflozin [Jardiance] 25 mg PO DAILY 10/26/19 Glipizide/Metformin HCl [Glipizide-Metformin 5-500 mg] 1 each PO TID 10/26/19 Ramipril 5 mg PO DAILY 10/26/19 Semaglutide [Ozempic] 1 mg SQ DAILY 10/26/19 COPD: No Diabetes: Yes HTN: Yes Hypercholesterolemia: Yes - Psycho-Social/Smoking History Smoking History: Never smoked - Substance Abuse Hx (Audit-C & DAST Scrn) How often the patient has a drink containing alcohol: Never Score: In Men: 4 or > Positive; In Women: 3 or > Positive: 0 Screen Result (Pos requires Nsg. Audit-10AR): Negative In the last yr the pt used illegal drug/Rx for NonMed reason: No Score: Yes response is considered Positive: 0 Screen Result (Positive result requires Nsg. DAST-10): Negative Review of Systems - Review of Systems Able to Perform ROS?: Yes Constitutional: No: Symptoms Reported HEENTM: No: Symptoms Reported Respiratory: No: Symptoms reported Cardiac (ROS): No: Symptoms Reported ABD/GI: No: Symptoms Reported : No: Symptoms Reported Integumentary: No: Symptoms Reported Neurological: Yes: Weakness, Unsteady Gait. No: Headache, Numbness, Paresth esia, Pre-Existing Deficit Endocrine: No: Symptoms Reported Hematologic/Lymphatic: No: Symptoms Reported All Other Systems: Reviewed and Negative *Physical Exam - Vital Signs Last Vital Signs Temp Pulse Resp BP Pulse Ox 98.5 F 63 17 157/69 99 11/09/19 16:15 11/09/19 16:15 11/09/19 16:15 11/09/19 16:15 11/09/19 16:15 - Physical Exam General Appearance: Yes: Nourished, Appropriately Dressed, Obese, Other (resting comfortably in bed). No: Apparent Distress HEENT: positive: EOMI, ANTIONETTE, Pharynx Normal, Hearing Grossly Normal. negative: Normal Voice, Symmetrical, Scleral Icterus (R), Scleral Icterus (L), Pharyngeal Erythema, Tonsillar Exudate, Tonsillar Erythema Neck: positive: Trachea midline, Normal Thyroid, Supple. negative: Tender, R igid, Lymphadenopathy (R), Lymphadenopathy (L), Tender lateral, Tender midline Respiratory/Chest: positive: Lungs Clear, Normal Breath Sounds. negative: Chest Tender, Respiratory Distress, Accessory Muscle Use, Crackles, Rales, Rhonchi, Stridor, Wheezing Cardiovascular: positive: Regular Rhythm, Regular Rate. negative: Murmur Gastrointestinal/Abdominal: positive: Normal Bowel Sounds, Flat, Soft. negative: Tender, Organomegaly, Pulsatile Mass, Guarding, Rebound, Hernia Musculoskeletal: positive: Normal Inspection. negative: CVA Tenderness, Decreased Range of Motion, Vertebral Tenderness Extremity: positive: Normal Capillary Refill, Normal Inspection, Normal Range of Motion, Pelvis Stable. negative: Tender, Pedal Edema, Swelling, Calf Tenderness Integumentary: positive: Normal Color, Dry, Warm Neurologic: positive: Fully Oriented, Alert, Normal Mood/Affect, Normal Response, Facial Droop (L-sided nasolabial flattening, spares forehead), Sensory Deficit (increased sensation to LUE), Finger to Nose (normal RUE, dysmetria to LUE). negative: cocoa bean roaster helper II-XII NML intact (facial droop left side), Motor Strength 5/5 (LUE 4/5, LLE 3/5. R side normal strength) NIH Stroke Scale - Last Known Well Date/Time & Onset Date Last Known Well: 11/08/19 Time Last Known Well: 08:00 - Initial Evaluation Level of consciousness: Alert Ask patient the month and their age: Answers both correctly Ask patient to open & close eyes; make fist and let go: Obeys both correctly Best gaze (horizontal eye movement): Normal Visual field testing: No visual field loss Facial paresis (Show teeth/raise eyebrows/close eyes tight): Minor paralysis (flattened nasolabial fold, asymmetry on smiling) Motor Function: Left Arm: Drift Motor Function: Right Arm: Normal (extends arm 90 (or 45) degrees for 10 seconds without drift Motor Function: Left Leg: Some effort against gravity Motor Function: Right Leg: Normal (extends leg 30 degrees for 5 seconds without drift) Limb Ataxia: Present in one limb Sensory(Use pinprick test arms,legs,trunk,face/side to side): Mild to moderate decrease in sensation Best language (Describe picture, name items, read sentences): No Aphasia Dysarthria (read several words): Mild to moderate slurring of words Extinction and Inattention: No abnormality - Total Score NIH Stroke Scale Score: 7 tPA Exclusion checklist 3-4.5h - Ineligibility reason(s) Reasons No tPA given: Outside of window - delayed arrival Critical Care Time/MDM Note - Medical Decision Making Note: 11/09/19 17:39 Patient has history of HTN/HLD and recent admission for TIA presenting with new onset L-sided facial droop, extremity weakness, vision changes, high concern for CVA. NIHSS 7. Getting CVA labs, covid-19, and CT head non/con for evaluation of new CVA. BGM at bedside 143. CT read as new focal infarct of right posterior basal ganglia, no ICH. Patient outside of window for tPA and does not have a large vessel occlusion, not a candidate for thrombectomy. Will consult Dr. Mays, will need admission to Stroke tele and MRI in the morning. Already has recent carotid dopplers done. ECG shows sinus rhythm with 1st degree AV block, HR 65, QTc 403, no CJ/D or TWI. Labs notable for: - CBC WNL - Cr 1.4, will fluid replete - CP WNL - coags WNL - lipids WNL - UA 2+ LE and 479 bacteria, will treat for UTI. Ordering 1g Rocephin for UTI. Discussed case with Dr. Mays, recommends 80mg atorvastatin and ASA, admit to tele and AM MRI. MDMD sent to [facility] for admission to tele. 11/09/19 19:[address] Vines with night team, plan for admit to tele for CVA and UTI. Discharge - Discharge Information Problems reviewed: Yes Clinical Impression/Diagnosis: CVA (cerebral vascular accident) Qualifiers: CVA mechanism: unspecified Qualified Code(s): I63.9 - Cerebral infarction, unspecified Condition: Guarded - Follow up/Referral Referrals: Fernanda Arevalo MD [Primary Care Provider] - - Patient Discharge Instructions - Post Discharge Activity
[2019-11-09] MEDS ORDERED: ASPIRIN 81 MG CHEWABLE TABLETS PO ONE (17:12)
[2019-11-09 17:39] LABS: BASO % 0.3 % (0-2.0); EOS % 1.1 % (0-4.5); HEMATOCRIT 38.2 % (35.4-49); HEMOGLOBIN 12.8 GM/dL (11.7-16.9); LYMPH % 39.4 % (8-40); MCH 30.5 pg (25.7-33.7); MCHC 33.4 g/dl (32.0-35.9); MEAN CELL VOLUME 91.4 fl (80-96); MEAN PLT VOLUME 8.6 fl (7.5-11.1); MONO % 7.8 % (3.8-10.2); NEUT % 51.4 % (42.8-82.8); PLATELET COUNT 216 K/MM3 (134-434); RBC 4.18 M/mm3 (4.00-5.60); WHITE BLOOD COUNT 7.2 K/mm3 (4.0-10.0)
[2019-11-09 17:43] LABS: INR 0.94 (0.83-1.09); PROTHROMBIN TIME (PATIENT) 11.1 SEC (9.7-13.0)
[2019-11-09] MEDS ORDERED: ASPIRIN 81 MG CHEWABLE TABLETS ONE (17:58)
[2019-11-09 18:05] LABS: ALK PHOS 94 U/L (45-117); ANION GAP 7 MMOL/L (8-16); BILIRUBIN,TOTAL 0.5 mg/dL (0.2-1); BLOOD UREA NITROGEN 24.9 mg/dL (7-18); CALCIUM 9.4 mg/dL (8.5-10.1); CHLORIDE 105 mmol/L (98-107); CHOLESTEROL 139 mg/dL (50-200); CO2 27 mmol/L (21-32); CREATININE 1.4 mg/dL (0.55-1.3); GLUCOSE,RANDOM 127 mg/dL (74-106); HDL CHOLESTEROL 42 mg/dL (40-60); LDL CHOLESTEROL (ONLY SJRH) 82 mg/dL (5-100); POTASSIUM 4.8 mmol/L (3.5-5.1); SGOT/AST 36 U/L (15-37); SGPT/ALT 31 U/L (13-61); SODIUM 139 mmol/L (136-145); TOT PROT 7.7 g/dl (6.4-8.2); TRIGLYCERIDES 103 mg/dL (0-150)
[2019-11-09] MEDS ORDERED: SODIUM CHLORIDE 0.9% 500 ML INFUS.BAG IV ONE (18:12)
[2019-11-09] MEDS ORDERED: ATORVASTATIN CA 80 MG TABLET (FP) PO ONE (18:21)
[2019-11-09] MEDS ORDERED: ATORVASTATIN CA 80 MG TABLET (FP) ONE (18:26)
[2019-11-09 18:28] LABS: EPI CELLS 9 /uL (0-25.1); HYALINE CASTS 0 /uL (0-3.1); URINE APPEARANCE CLEAR; URINE BACTERIA 479 /uL (0-1359); URINE BILIRUBIN NEGATIVE (NEGATIVE); URINE COLOR YELLOW; URINE GLUCOSE (UA) 3+ (NEGATIVE); URINE KETONE NEGATIVE (NEGATIVE); URINE LEUK ESTERASE 2+ (NEGATIVE); URINE NITRITE NEGATIVE (NEGATIVE); URINE PROTEIN NEGATIVE (NEGATIVE); URINE RBC 5 /uL (0-23.9); URINE UROBILINOGEN 0.2 mg/dL (0.2-1.0); URINE WBC 305 /uL (0-25.8)
--- NOTE | 2019-11-09 18:47 | PDOC ---
Documentation entered by Marilu Mera SCRIBE, acting as scribe for Ida Butler MD. Ida Butler MD: This documentation has been prepared by the Ede chaney Xhesika, SCRIBE, under my direction and personally reviewed by me in its entirety. I confirm that the documentation accurately reflects all work, treatment, procedures, and medical decision making performed by me. Attending Attestation - Resident Resident Name: Charlie Montaño - ED Attending Attestation I have performed the following: I have examined & evaluated the patient, The case was reviewed & discussed with the resident, I agree w/resident's findings & plan, Exceptions are as noted - HPI HPI: 11/09/19 17:38 The patient is a 74y/o M with a PMH of HTN, T2DM and HLD who presents to the ED sent by PMD for new onset facial droop at 8:30AM today. Pt was recently seen and admitted here at [facility] (2 weeks ago) for TIA, MRI showed lacunar infarcts to R periventricular white matter of the posterior right thalamus and was followed by Dr. Mays. states, the patient had slurred speech since yesterday morning. sates pt endorsed L arm weakness at 7pm last-night after dinner when he dropped his tea cup. Pt reports difficulty with vision and unsteady gait. Per , pt saw his PCP today who advised pt to some to the ED for further evaluation. Allergies: NKDA PCP: Dr. Arevalo - Physicial Exam PE: 11/09/19 17:51 General: non-toxic appearing HEENT: + L facial droop, MMM, NCAT, EOMI Chest: CTAB, good air entry CVS: + s1 s2 Abdomen: obese limiting exam, soft, nt, no rebound, no guarding Neuro: strength 3-4/5 LUE 5/5 RUE, +pronator drift, strength 4/5 LLE 5/5 RLE, sensation decreased to light touch on L - Critical Care Time Total Critical Care Time: 30 Critical Care Statement: The care of this patient involved high complexity decision making to prevent further life threatening deterioration of the pa tient's condition and/or to evaluate & treat vital organ system(s) failure or risk of failure. - Medical Decision Making 11/09/19 17:54 74 yo M recent TIA here with new L sided weakness and facial droop, outside TPA window but concerning or new CVA. Plan: -labs -cxr -EKG -CT head -neuro consult as inpatient (Dr. Stinson) -admit tele This clinical encounter is taking place during a federal and state health care emergency attributable to the novel Harris Virus pandemic. The Information And Referral Director of the Department of Health and Human Services has declared, pursuant to the Public Health Service Act 319F-3 (42 U.S.C. 247d-6d), that a covered persons activities related to medical countermeasures against COVID-19 will be immune from liability under Federal and State law. Discharge - Discharge Information Problems reviewed: Yes Clinical Impression/Diagnosis: CVA (cerebral vascular accident) Qualifiers: CVA mechanism: unspecified Qualified Code(s): I63.9 - Cerebral infarction, unspecified Condition: Guarded - Follow up/Referral - Patient Discharge Instructions - Post Discharge Activity
--- NOTE | 2019-11-09 19:24 | PDOC ---
*Physical Exam - Vital Signs Last Vital Signs Temp Pulse Resp BP Pulse Ox 98.5 F 63 17 157/69 99 11/09/19 16:15 11/09/19 16:15 11/09/19 16:15 11/09/19 16:15 11/09/19 16:15 - Physical Exam 11/09/19 19:23 Accepted patient from day team at 7pm sign out. Pending admission to [facility] for CVA and UTI. Getting IVF, ceftriaxone. ED Treatment Course - LABORATORY CBC & Chemistry Diagram: 11/09/19 17:07 11/09/19 17:07 - ADDITIONAL ORDERS Additional order review: Laboratory Results 11/09/19 11/09/19 11/09/19 18:00 17:07 17:07 PT with INR INR PTT (Actin FS) Sodium 139 Potassium 4.8 Chloride 105 Carbon Dioxide 27 Anion Gap 7 L BUN 24.9 H Creatinine 1.4 H Est GFR (CKD-EPI)AfAm 56.96 Est GFR (CKD-EPI)NonAf 49.14 POC Glucometer Random Glucose 127 H Calcium 9.4 Total Bilirubin 0.5 AST 36 ALT 31 Alkaline Phosphatase 94 Creatine Kinase 202 Creatine Kinase Index No Result Required. CK-MB (CK-2) < 1.0 Troponin I < 0.02 Total Protein 7.7 Albumin 4.0 Triglycerides Cholesterol Total LDL Cholesterol HDL Cholesterol Urine Color Yellow Urine Appearance Clear Urine pH 5.0 Ur Specific [place] 1.017 Urine Protein Negative Urine Glucose (UA) 3+ H Urine Ketones Negative Urine Blood Trace Urine Nitrite Negative Urine Bilirubin Negative Urine Urobilinogen 0.2 Ur Leukocyte Esterase 2+ H Urine WBC (Auto) 305 Urine RBC (Auto) 5 Urine Casts (Auto) 0 U Epithel Cells (Auto) 9 Urine Bacteria (Auto) 479 Anti-A Titer Cancelled Blood Type Cancelled Antibody Screen Cancelled 11/09/19 11/09/19 11/09/19 17:07 17:07 16:59 PT with INR 11.10 INR 0.94 PTT (Actin FS) 30.0 Sodium Potassium Chloride Carbon Dioxide Anion Gap BUN Creatinine Est GFR (CKD-EPI)AfAm Est GFR (CKD-EPI)NonAf POC Glucometer 143 Random Glucose Calcium Total Bilirubin AST ALT Alkaline Phosphatase Creatine Kinase Creatine Kinase Index CK-MB (CK-2) Troponin I Total Protein Albumin Triglycerides 103 Cholesterol 139 Total LDL Cholesterol 82 HDL Cholesterol 42 Urine Color Urine Appearance Urine pH Ur Specific [place] Urine Protein Urine Glucose (UA) Urine Ketones Urine Blood Urine Nitrite Urine Bilirubin Urine Urobilinogen Ur Leukocyte Esterase Urine WBC (Auto) Urine RBC (Auto) Urine Casts (Auto) U Epithel Cells (Auto) Urine Bacteria (Auto) Anti-A Titer Blood Type Antibody Screen 11/09/19 11/09/19 17:07 16:59 RBC 4.18 MCV 91.4 MCHC 33.4 RDW 14.0 MPV 8.6 Neutrophils % 51.4 Lymphocytes % 39.4 Monocytes % 7.8 Eosinophils % 1.1 Basophils % 0.3 POC Glucometer 143 - Medications Given in the ED: ED Medications Discontinued Medications Generic Name Dose Route Start Last Admin Trade Name Freq PRN Reason Stop Dose Admin Aspirin 324 mg 11/09/19 17:12 11/09/19 17:50 Asa - PO 11/09/19 17:13 324 mg ONCE ONE Administration Atorvastatin Calcium 80 mg 11/09/19 18:21 11/09/19 18:32 Lipitor - PO 11/09/19 18:22 80 mg ONCE ONE Administration Sodium Chloride 500 ml 11/09/19 18:12 11/09/19 18:13 Normal Saline - IV 11/09/19 18:13 500 ml ONCE ONE Administration Discharge - Discharge Information Problems reviewed: Yes Clinical Impression/Diagnosis: CVA (cerebral vascular accident) Qualifiers: CVA mechanism: unspecified Qualified Code(s): I63.9 - Cerebral infarction, unspecified Condition: Guarded - Admission Yes - Follow up/Referral - Patient Discharge Instructions - Post Discharge Activity
--- NOTE | 2019-11-09 20:54 | HP ---
CHIEF COMPLAINT: left facial droop, left sided weakness and unsteady gait PCP: Dr. Arevalo HISTORY OF PRESENT ILLNESS: This is a 74 male with a past medical history of hypertension, , type II DM, poor medicine compliance, and hyperlipidemia whho was sent by PMD Dr. Arevalo today for CVA evaluation. He was admitted to [facility] for TIA two weeks ago and was discharged 4 days ago and he was evaluated by Neurology-Dr. Vasquez. MRI at that time on 10/27/2019 demonstrated nonhemorhagic infarct on the right pe riventricular white matter just lateral to the posterior aspect of the right thalamus. Today he presents with after being sent by PMD for new onset left facial droop, left arm/foot weakness, and unsteady gait. As per chart reported patient has had slurred speech since yesterday morning, had episode of new onset left arm weakness at 7pm after dinner and noticed he dropped a tea cup, and had a normal facial tone as of 10pm last night but noticed new onset facial droop at 8:30am today. Patient also reports that he has had difficulty with vision, as his vision is normally perfect with glasses but now is blurry, also has trouble walking with weakness in left lower extremity. He and his play word board games at night and he has no cognitive deficits. ER course notable for: CT scan of head - acute/subacute infarct in the right posterior basal ganglia, no gross intracranial hemorrhage Neurology(Dr. Mays) was consulted and advised to give asa and statin, not a TPA candidate. MRI of brain 11/08 demonstrated an ancute infarct UA- 2+ leukoesterase, received 1 dosage of IV Ceftriaxone Lab findings notable for creatinine of 1.4, received 1 L of IVF . Recent Travel: no PAST MEDICAL HISTORY: hypertension hyperlipidemia type II diabetes mellitus PAST SURGICAL HISTORY: none Social History: Smoking:no Alcohol:no Drugs: no Family History: noncontributory Allergies pineapple Allergy (Verified 10/30/19 10:14) HOME MEDICATIONS: Home Medications Medication Instructions Recorded Atorvastatin Ca [Lipitor] 10 mg PO HS 10/26/19 Empagliflozin [Jardiance] 25 mg PO DAILY 10/26/19 Glipizide/Metformin HCl 1 each PO TID 10/26/19 [Glipizide-Metformin 5-500 mg] Ramipril 5 mg PO DAILY 10/26/19 Semaglutide [Ozempic] 1 mg SQ DAILY 10/26/19 REVIEW OF SYSTEMS CONSTITUTIONAL: Absent: fever, chills, diaphoresis, generalized weakness, malaise, loss of appetite, weight change HEENT: Absent: rhinorrhea, nasal congestion, throat pain, throat swelling, difficulty swallowing, mouth swelling, ear pain, eye pain, visual changes CARDIOVASCULAR: Absent: chest pain, syncope, palpitations, irregular heart rate, lightheadedness, peripheral edema RESPIRATORY: Absent: cough, shortness of breath, dyspnea with exertion, orthopnea, wheezing, stridor, hemoptysis GASTROINTESTINAL: Absent: abdominal pain, abdominal distension, nausea, vomiting, diarrhea, constipation, melena, hematochezia GENITOURINARY: Absent: dysuria, frequency, urgency, hesitancy, hematuria, flank pain, genital pain MUSCULOSKELETAL: Absent: myalgia, arthralgia, joint swelling, back pain, neck pain SKIN: Absent: rash, itching, pallor HEMATOLOGIC/IMMUNOLOGIC: Absent: easy bleeding, easy bruising, lymphadenopathy, frequent infections ENDOCRINE: Absent: unexplained weight gain, unexplained weight loss, heat intolerance, cold intolerance NEUROLOGIC: Absent: headache, focal weakness or paresthesias, dizziness, unsteady gait, blurry vision, left upper and lower extremity weakness, left facial droop, seizure, mental status changes, bladder or bowel incontinence PSYCHIATRIC: Absent: anxiety, depression, suicidal or homicidal ideation, hallucinations. PHYSICAL EXAMINATION Vital Signs - 24 hr 11/09/19 11/09/19 16:15 19:38 Temperature 98.5 F Pulse Rate 63 Pulse Rate [ 64 Left] Respiratory 17 14 Rate Blood Pressure 157/69 Blood Pressure 131/64 [Right Arm] O2 Sat by Pulse 99 99 Oximetry (%) General no acute distress Vital signs reviewed blood pressure normotensive Neuro awake alert oriented to person place and time speech clear left facial droop tongue midline moving upper and lower extremities with left sided weakness Lungs CTA nonlabored breathing effort Heart s1s2 rate regular Abdomen soft nontender nondistended Extremities warm to touch no pitting edema no cyanosis Skin nail beds and lips pink Mood calm Laboratory Results - last 24 hr 11/09/19 11/09/19 11/09/19 16:59 17:07 17:07 WBC RBC Hgb Hct MCV MCH MCHC RDW Plt Count MPV Absolute Neuts (auto) Neutrophils % Lymphocytes % Monocytes % Eosinophils % Basophils % Nucleated RBC % PT with INR 11.10 INR 0.94 PTT (Actin FS) 30.0 Sodium Potassium Chloride Carbon Dioxide Anion Gap BUN Creatinine Est GFR (CKD-EPI)AfAm Est GFR (CKD-EPI)NonAf POC Glucometer 143 Random Glucose Calcium Total Bilirubin AST ALT Alkaline Phosphatase Creatine Kinase Creatine Kinase Index CK-MB (CK-2) Troponin I Total Protein Albumin Triglycerides 103 Cholesterol 139 Total LDL Cholesterol 82 HDL Cholesterol 42 Urine Color Urine Appearance Urine pH Ur Specific [place] Urine Protein Urine Glucose (UA) Urine Ketones Urine Blood Urine Nitrite Urine Bilirubin Urine Urobilinogen Ur Leukocyte Esterase Urine WBC (Auto) Urine RBC (Auto) Urine Casts (Auto) U Epithel Cells (Auto) Urine Bacteria (Auto) Anti-A Titer Blood Type Antibody Screen 11/09/19 11/09/19 11/09/19 17:07 17:07 17:07 WBC 7.2 RBC 4.18 Hgb 12.8 Hct 38.2 MCV 91.4 MCH 30.5 MCHC 33.4 RDW 14.0 Plt Count 216 MPV 8.6 Absolute Neuts (auto) 3.7 Neutrophils % 51.4 Lymphocytes % 39.4 Monocytes % 7.8 Eosinophils % 1.1 Basophils % 0.3 Nucleated RBC % 0 PT with INR INR PTT (Actin FS) Sodium 139 Potassium 4.8 Chloride 105 Carbon Dioxide 27 Anion Gap 7 L BUN 24.9 H Creatinine 1.4 H Est GFR (CKD-EPI)AfAm 56.96 Est GFR (CKD-EPI)NonAf 49.14 POC Glucometer Random Glucose 127 H Calcium 9.4 Total Bilirubin 0.5 AST 36 ALT 31 Alkaline Phosphatase 94 Creatine Kinase 202 Creatine Kinase Index No Result Required. CK-MB (CK-2) < 1.0 Troponin I < 0.02 Total Protein 7.7 Albumin 4.0 Triglycerides Cholesterol Total LDL Cholesterol HDL Cholesterol Urine Color Urine Appearance Urine pH Ur Specific [place] Urine Protein Urine Glucose (UA) Urine Ketones Urine Blood Urine Nitrite Urine Bilirubin Urine Urobilinogen Ur Leukocyte Esterase Urine WBC (Auto) Urine RBC (Auto) Urine Casts (Auto) U Epithel Cells (Auto) Urine Bacteria (Auto) Anti-A Titer Cancelled Blood Type Cancelled Antibody Screen Cancelled 11/09/19 18:00 WBC RBC Hgb Hct MCV MCH MCHC RDW Plt Count MPV Absolute Neuts (auto) Neutrophils % Lymphocytes % Monocytes % Eosinophils % Basophils % Nucleated RBC % PT with INR INR PTT (Actin FS) Sodium Potassium Chloride Carbon Dioxide Anion Gap BUN Creatinine Est GFR (CKD-EPI)AfAm Est GFR (CKD-EPI)NonAf POC Glucometer Random Glucose Calcium Total Bilirubin AST ALT Alkaline Phosphatase Creatine Kinase Creatine Kinase Index CK-MB (CK-2) Troponin I Total Protein Albumin Triglycerides Cholesterol Total LDL Cholesterol HDL Cholesterol Urine Color Yellow Urine Appearance Clear Urine pH 5.0 Ur Specific [place] 1.017 Urine Protein Negative Urine Glucose (UA) 3+ H Urine Ketones Negative Urine Blood Trace Urine Nitrite Negative Urine Bilirubin Negative Urine Urobilinogen 0.2 Ur Leukocyte Esterase 2+ H Urine WBC (Auto) 305 Urine RBC (Auto) 5 Urine Casts (Auto) 0 U Epithel Cells (Auto) 9 Urine Bacteria (Auto) 479 Anti-A Titer Blood Type Antibody Screen ASSESSMENT/PLAN: In summary this is a 74 male with a past medical history of hypertension,hyperlipidemia, NIDDM, and poor medicine compliance who was sent by PMD Dr. Arevalo today for CVA evaluation. He was found to have an acute/subacute infarct in the right posterior basal ganglia as seen on CT scan of head and an abnormal urinalysis. He is being admitted to Medicine Team for further neurological evaluation and medical management for UTI. #1 CVA(new onset, unclear etiology, has medication noncompliance hx) MRI of brain showing an acute infarct monitor on telemetry for atrial fibrillation check carotid doppler US Neurology- Dr. Mays consulted c/w asa and statin therapy speech and swallow evaluation TTE to exclude thrombus and likely will need OTILIA to fully exclude ASD/PFO and thrombus #2 UTI asymptomatic received 1 dose of IV Ceftriaxone #3 Acute Renal Insufficiency creatinine 1.4, received 1 liter of IVF repeat BMP in am #4 Hypertension normotensive c/w ramipril with close monitoring of renal studies #5 Hyperlipidemia TC 139, HDL42, LDL 82, triglycerides 103 c/w atorvastatin 20 therapy #6 NIDDM hold jardiance, glipizide and metformin blood glucose monitoring before meals and at bedtime insulin as per sliding scale check hgbA1C c/w statin and aminah inhibitor #7 Rule Out COVID follow up on COVID test maintain strict contact/droplet isolation precautions DVT Prophylaxis SCD's FEN no IVF indicated BMP daily and replete as needed NPO, speech and swallow evaluation ordered Family Medical History Family History: Unremarkable Problem List - Problem (1) CVA (cerebral vascular accident) Code(s): I63.9 - CEREBRAL INFARCTION, UNSPECIFIED Qualifiers: CVA mechanism: unspecified Qualified Code(s): I63.9 - Cerebral infarction, unspecified Visit type - Medication Review Med list reviewed for High Risk Meds patients 65 and older: Yes - Emergency Visit Emergency Visit: Yes ED Registration Date: 11/09/19 Care time: The patient presented to the Emergency Department on the above date and was hospitalized for further evaluation of their emergent condition. - New Patient This patient is new to me today: Yes Date on this admission: 11/10/19 - Critical Care Critical Care patient: No
[2019-11-09] MEDS ORDERED: ATORVASTATIN CA 10 MG TABLET (FP) PO SCH (22:00)
[2019-11-09] MEDS ORDERED: ATORVASTATIN CA 40 MG TABLET (FP) PO SCH (22:00)
[2019-11-10] MEDS: ATORVASTATIN CA 80 MG TABLET (FP) PO SCH ×2 (00:16→22:30)
[2019-11-10] MEDS: INSULIN SLIDING SCALE (NOVOLOG) 1 VIAL SQ SCH ×2 (06:44→17:07)
[2019-11-10 06:56] LABS: HEMATOCRIT 37.1 % (35.4-49); HEMOGLOBIN 12.6 GM/dL (11.7-16.9); MCH 30.7 pg (25.7-33.7); MEAN CELL VOLUME 90.4 fl (80-96); MEAN PLT VOLUME 8.7 fl (7.5-11.1); PLATELET COUNT 209 K/MM3 (134-434); RBC 4.11 M/mm3 (4.00-5.60); RDW 14.4 % (11.9-15.9); WHITE BLOOD COUNT 6.7 K/mm3 (4.0-10.0)
[2019-11-10 07:30] LABS: CALCIUM 8.8 mg/dL (8.5-10.1); CREATININE 1.3 mg/dL (0.55-1.3); POTASSIUM 4.3 mmol/L (3.5-5.1)
--- NOTE | 2019-11-10 09:01 | PN ---
Progress Note, Physician History of Present Illness: This is a 74 male with a past medical history of hypertension, , type II DM, poor medicine compliance, and hyperlipidemia whho was sent by PMD Dr. Arevalo today for CVA evaluation. He was admitted to [facility] for TIA two weeks ago and was discharged 4 days ago and he was evaluated by Neurology-Dr. Vasquez. MRI at that time on 10/27/2019 demonstrated nonhemorhagic infarct on the right perive ntricular white matter just lateral to the posterior aspect of the right thalamus. Today he presents with after being sent by PMD for new onset left facial droop, left arm/foot weakness, and unsteady gait. As per chart reported patient has had slurred speech since yesterday morning, had episode of new onset left arm weakness at 7pm after dinner and noticed he dropped a tea cup, and had a normal facial tone as of 10pm last night but noticed new onset facial droop at 8:30am today. Patient also reports that he has had difficulty with vision, as his vision is normally perfect with glasses but now is blurry, also has trouble walking with weakness in left lower extremity. He and his play word board games at night and he has no cognitive deficits. ER course notable for: CT scan of head - acute/subacute infarct in the right posterior basal ganglia, no gross intracranial hemorrhage case discussed with Neurology - Current Medication List Current Medications: Active Medications Aspirin (Asa -) 81 mg PO DAILY [facility] Atorvastatin Calcium (Lipitor -) 80 mg PO HS [facility] Last Admin: 11/10/19 00:16 Dose: Not Given Documented by: Insulin Aspart (Novolog Vial Sliding Scale -) 1 vial SQ BIDAC [facility]; Protocol Last Admin: 11/10/19 06:44 Dose: Not Given Documented by: Ramipril (Altace -) 5 mg PO DAILY [facility] - Objective Vital Signs: Vital Signs Temperature 98.5 F 11/10/19 08:32 Pulse Rate 65 11/10/19 08:32 Respiratory Rate 20 11/10/19 08:32 Blood Pressure 155/75 11/10/19 08:32 O2 Sat by Pulse Oximetry (%) 98 11/10/19 08:32 Labs: CBC, BMP 11/10/19 05:50 11/10/19 05:50 INR, PTT INR 0.94 (0.83-1.09) 11/09/19 17:07
--- NOTE | 2019-11-10 09:33 | CONSULT ---
Admitting History and Physical - Admission History of Present Illness: Per EMR- 74 male with a past medical history of hypertension, , type II DM, poor medicine compliance, and hyperlipidemia meenakshi was sent by PMD Dr. Arevalo today for CVA evaluation. He was admitted to [facility] for TIA two weeks ago and was discharged 4 days ago and he was evaluated by Neurology-Dr. Vasquez. MRI at that time on 10/27/2019 demonstrated nonhemorhagic infarct on the right periventricular white matter just lateral to the posterior aspect of the right thalamus. Today he presents with after being sent by PMD for new onset left facial droop, left arm/foot weakness, and unsteady gait. As per chart reported patient has had slurred speech since yesterday morning, had episode of new onset left arm weakness at 7pm after dinner and noticed he dropped a tea cup, and had a normal facial tone as of 10pm last night but noticed new onset facial droop at 8:30am today. Patient also reports that he has had difficulty with vision, as his vision is normally perfect with glasses but now is blurry, also has trouble walking with weakness in left lower extremity. He and his play word board games at night and he has no cognitive deficits. ER course notable for: CT scan of head - acute/subacute infarct in the right posterior basal ganglia, no gross intracranial hemorrhage Pt passed 2 Dysphagia screens. He is NPO. Selected Entries 11/10/19 11/10/19 11/10/19 02:00 06:00 08:32 Temperature 98.0 F 98.0 F 98.5 F Pulse Rate 72 66 65 Blood Pressure 148/87 144/74 155/75 Laboratory Tests 11/09/19 11/10/19 17:43 05:50 WBC 6.7 COVID-19 (BEATRIZ) Pending This is my first consult with this pt. History Source: Patient Limitations to Obtaining History: No Limitations - Past Medical History CARDIAC MONITOR: Yes: Peripheral Neuropathy Renal/: Yes: Renal Failure Musculoskeletal: Yes: Chronic low back pain - Smoking History Smoking history: Never smoked History - Admission Reason For Visit: URINARY TRACT INFECTION NEUROLOGICAL DEFICIT PRESE - Diagnostics CT Scan: Report Reviewed (CT scan of head - acute/subacute infarct in the right posterior basal ganglia, no gross intracranial hemorrhage) MRI: Report Reviewed (R thalamic infarct) - General Mental Status: Alert and Oriented, Awake and Alert, Able to Follow Commands Attention: Intact Ability to Follow Directions: Excellent Head/Neck Control: WFL - Hearing Hearing: Normal Hearing: Normal Hearing Aide: No Speech Evaluation - Communication Primary Language: SPANISH Communication: Yes: Dysarthria Oral Expression Ability: Yes: Mild Impairment - Speech Production Able to Make Needs Known: Yes: WNL Intelligibility: Yes: Mildly Impaired - Speech Characteristics Voice Loudness: Normal Voice Pitch: Yes: Normal Voice Phonatory-based Quality: Yes: Normal Speech Pattern: Impaired Speech Clarity: < 100% Nasal Resonance: Normal Articulation: Yes: Imprecise Dysfluency: Yes: Tonic - Language/Auditory Comprehension Follows: Yes: 2 Stage Simple Commands Observation: Able to respond to yes/no queries: Yes, Yes/No Confusion: No, Comprehends Conversational Speech: Yes - Language/Verbal Expression Able to Respond to Simple Queries: Yes: WNL Able to Communicate Wants and Needs: Yes: WNL Functional Communication Status: Yes: WNL - Swallow Evaluation/Bedside Assessment Current Nutritional Intake: NPO Oral Secretions: Yes: WFL Dentition: Yes: Adequate Facial Symmetry at Rest: Facial Droop Left Facial Symmetry on Retraction: Facial Droop Left Sensation: Reduced Left Pucker Lips: Droops Left Smile: Droops Left Lingual Movement: Symmetric Lingual Speed of Movement: Reduced Lingual Movement Strgth Against Opposition: Reduced Lingual Movement Characteristics: Normal Velopharyngeal Movement: Normal Laryngeal Elevation: WFL Laryngeal Movement: Able to Palpate Rate of Intake: WFL Bolus Size: WFL Labial Seal: WFL Chewing: WFL Oral Prep Time: WFL Pocketing: Present Left Coughing/Throat Clear: No Change in Voice: No Recommendations - Speech Evaluation, Impression/Plan Impression: Brisk swallow without overt symptoms of aspiration. Left facial Mild Dysarthria. Good historian. - Disposition Discharge to: To be Determined - Dysphagia Impressions/Plan Swallowing Skills: [facility] Dysphagia Impressions: No Impairment *Silent aspiration: cannot be R/O at bedside Dysphagia Treatment Plan: Facilitative Feeding, Safe Rate, Elevate HOB during feed Recommendations: Modified Barium Swallow (if cough,congestion,fever), Other (Pt educated on oral motor exercises and to chew onright side, clear right cheek of residue) - Recommendations Diet Consistency: Regular Medication Administration: Whole with water Liquids: Thin Liquids
[2019-11-10] MEDS ORDERED: ASPIRIN 81 MG CHEWABLE TABLETS PO SCH (10:00)
[2019-11-10] MEDS: RAMIPRIL 5 MG CAPSULE (FP) PO SCH (10:58)
--- NOTE | 2019-11-10 13:34 | CON.NEURO ---
Consult - Past Medical History SHAPER HAND: Yes: Peripheral Neuropathy Renal/: Yes: Renal Failure Musculoskeletal: Yes: Chronic low back pain - Smoking History Smoking history: Never smoked Home Medications - Allergies Allergies/Adverse Reactions: Allergies Allergy/AdvReac Type Severity Reaction Status Date / Time pineapple Allergy Verified 10/30/19 10:14 - Home Medications Home Medications: Ambulatory Orders Atorvastatin Ca [Lipitor] 10 mg PO HS 10/26/19 Empagliflozin [Jardiance] 25 mg PO DAILY 10/26/19 Glipizide/Metformin HCl [Glipizide-Metformin 5-500 mg] 1 each PO TID 10/26/19 Ramipril 5 mg PO DAILY 10/26/19 Semaglutide [Ozempic] 1 mg SQ DAILY 10/26/19 Physical Exam-Neuro Vital Signs: Vital Signs Temperature 98.5 F 11/10/19 08:32 Pulse Rate 65 11/10/19 08:32 Respiratory Rate 20 11/10/19 08:32 Blood Pressure 155/75 11/10/19 08:32 O2 Sat by Pulse Oximetry (%) 98 11/10/19 08:32 Labs: CBC, BMP 11/10/19 05:50 11/10/19 05:50 INR, PTT INR 0.94 (0.83-1.09) 11/09/19 17:07 Assessment/Plan CC, Left sided hemiparesis, facial droop, let arm and leg weakness starting on october 4 HPI 74 year old male history of HTN,DM. Patient has recent stroke in right periventricular area, and symptoms resolved.Patient was started on lipitor and aspirin, which he was not taking it before. As per patient he was taking these medicaiton and yesterday he noticed left facial weakness and arm and leg weakness. Patient is able to swallow and there has been mild improvement in left arm and leg weakness. he denies cad or smoking history. HPI 74 year old male history of HTN,DM . He denies history of cad, stroke or smoking. p[place]int [place] in [place] with [place] and feelt dizzy, weak in his leg. andthere was more weakness on left side than right, and blurring of vision. His symptoms lasted for two hours. He ate sugare without any significant relief, and whenhewas not feeling better he came [facility]ospital. There was no other focal neurological syptoms, no prior episode before. His initial ct head wasnormal. Allergies/Adverse Reactions: Allergies Allergy/AdvReac Type Severity Reaction Status Date / Time No Known Allergies Allergy Verified 10/26/19 17:46 Home Medications: Atorvastatin Ca [Lipitor] 10 mg PO HS 10/26/19 Empagliflozin [Jardiance] 25 mg PO DAILY 10/26/19 Glipizide/Metformin HCl [Glipizide-Metformin 5-500 mg] 1 each PO TID 10/26/19 Ramipril 5 mg PO DAILY 10/26/19 Semaglutide [Ozempic] 1 mg SQ DAILY 10/26/19 Aspirin ROS,FH,SH reviwed in chart NEUROLOGICAL EXAMINATION Alert oriented x 3 speech is dysarthric eomi, pupils reactive left sided facial palsy Left sided mild hemiparesis ct head and mri confirmed there right internal capsule lacunar infarct carotid ultrasound was normal in october 2019 Assessment/Plan 74 year old male history of HTN,DM. He has been admitted to hospital for tia and symptoms resolved was started on aspirin and statin ( patient says he was taking all medication, he was prescribed). He came with right internal capsule lacunar infarct Plan: switch to plavix, d/c aspirin and max lipitor to 80 mg once a day - mra of brain for intracranial stenosis - He might need loop recording for possible paroxysmal atrial fibrillation - Life style modifications were discussed in detail, regarding weight loss, exercise, stress management - pt, dvt prophylaxis, speech - spent 30 minute explaining to patient regarding diagnosis and long erm prognosis , need to take medication and life style issues - Stroke Education Thanking you so much Moisés Mays MD
[2019-11-10] MEDS: CLOPIDOGREL BISULFATE 75 MG TABLET (FP) PO SCH (13:55)
--- NOTE | 2019-11-10 15:43 | EKG ---
Test Reason : Blood Pressure : / mmHG Vent. Rate : 065 BPM Atrial Rate : 065 BPM P-R Int : 224 ms QRS Dur : 082 ms QT Int : 388 ms P-R-T Axes : 063 004 065 degrees QTc Int : 403 ms SINUS RHYTHM WITH 1ST DEGREE A-V BLOCK POSSIBLE ANTERIOR INFARCT (CITED ON OR BEFORE 26-OCT-2019) ABNORMAL ECG WHEN COMPARED WITH ECG OF 26-OCT-2019 17:52, QUESTIONABLE CHANGE IN INITIAL FORCES OF SEPTAL LEADS Confirmed by ALLEN LEONARD MD ([id number]) on 11/10/2019 3:43:29 PM Referred By: Confirmed By:ALLEN LEONARD MD
[2019-11-11] MEDS: INSULIN SLIDING SCALE (NOVOLOG) 1 VIAL SQ SCH ×2 (06:21→17:10)
[2019-11-11] MEDS: RAMIPRIL 5 MG CAPSULE (FP) PO SCH (09:52)
[2019-11-11] MEDS: CLOPIDOGREL BISULFATE 75 MG TABLET (FP) PO SCH (09:52)
--- NOTE | 2019-11-11 10:03 | PN ---
Progress Note, Physician History of Present Illness: Pt weakness Better MRA: Basilar Artery stenosis/ Rt Kvng pathology noted. Pt will have cardiac evaluation Recent ECHO was normal No Falls No Chest pain No SOB No Abd pain No GI bleeding Pt weakness Better MRA: Basilar Artery stenosis/ Rt Kvng pathology noted. Pt will have cardiac evaluation Recent ECHO was normal - Current Medication List Current Medications: Active Medications Atorvastatin Calcium (Lipitor -) 80 mg PO HS [facility] Last Admin: 11/10/19 22:30 Dose: 80 mg Documented by: Clopidogrel Bisulfate (Plavix -) 75 mg PO DAILY [facility] Last Admin: 11/11/19 09:52 Dose: 75 mg Documented by: Insulin Aspart (Novolog Vial Sliding Scale -) 1 vial SQ BIDAC [facility]; Protocol Last Admin: 11/11/19 06:21 Dose: Not Given Documented by: Metoprolol Succinate (Toprol Xl -) 50 mg PO DAILY [facility] Last Admin: 11/11/19 09:52 Dose: 50 mg Documented by: Ramipril (Altace -) 5 mg PO DAILY [facility] Last Admin: 11/11/19 09:52 Dose: 5 mg Documented by: - Objective Vital Signs: Vital Signs Temperature 98.2 F 11/11/19 09:53 Pulse Rate 63 11/11/19 09:53 Respiratory Rate 18 11/11/19 09:53 Blood Pressure 152/78 11/11/19 09:53 O2 Sat by Pulse Oximetry (%) 95 11/11/19 09:53 Constitutional: Yes: Calm Eyes: Yes: Conjunctiva Clear, EOM Intact HENT: Yes: Atraumatic, Normocephalic Neck: Yes: Supple, Trachea Midline Cardiovascular: Yes: Regular Rate and Rhythm Respiratory: Yes: Regular, CTA Bilaterally Gastrointestinal: Yes: Normal Bowel Sounds, Soft Musculoskeletal: Yes: Joint Stiffness Edema: No Peripheral Pulses WNL: Yes Neurological: Yes: Alert, Oriented, Cran Nerves II-XII Intact Labs: CBC, BMP 11/10/19 05:50 11/10/19 05:50 INR, PTT INR 0.94 (0.83-1.09) 11/09/19 17:07 Problem List - Problems (1) CVA (cerebral vascular accident) Code(s): I63.9 - CEREBRAL INFARCTION, UNSPECIFIED Qualifiers: CVA mechanism: unspecified Qualified Code(s): I63.9 - Cerebral infarction, unspecified (2) Amaurosis fugax Code(s): G45.3 - AMAUROSIS FUGAX (3) BPH (benign prostatic hyperplasia) Code(s): N40.0 - BENIGN PROSTATIC HYPERPLASIA WITHOUT LOWER URINRY TRACT SYMP (4) Diabetes Code(s): E11.9 - TYPE 2 DIABETES MELLITUS WITHOUT COMPLICATIONS (5) Diabetic retinopathy Code(s): E11.319 - TYPE 2 DIABETES W UNSP DIABETIC RTNOP W/O MACULAR EDEMA (6) Raised prostate specific antigen Code(s): R97.20 - ELEVATED PROSTATE SPECIFIC ANTIGEN [PSA] (7) Renal failure (ARF), acute on chronic Code(s): N17.9 - ACUTE KIDNEY FAILURE, UNSPECIFIED; N18.9 - CHRONIC KIDNEY DISEASE, UNSPECIFIED (8) TIA (transient ischemic attack) Code(s): G45.9 - TRANSIENT CEREBRAL ISCHEMIC ATTACK, UNSPECIFIED
[2019-11-11] MEDS: ATORVASTATIN CA 80 MG TABLET (FP) PO SCH (21:33)
[2019-11-11] MEDS: amLODIPine BESYLATE 10 MG TABLET (FP) PO SCH (21:33)
[2019-11-11] MEDS ORDERED: PT OWN MED DRAWER 7, Y5N ONE (22:08)
--- NOTE | 2019-11-11 22:32 | PN ---
Progress Note (short form) - Note Progress Note: HPI 74 year old male history of HTN,DM. Patient has recent stroke in right periventricular area, and symptoms resolved.Patient was started on lipitor and aspirin, which he was not taking it before. As per patient he was taking these medicaiton and yesterday he noticed left facial weakness and arm and leg weakness. Patient is able to swallow and there has been mild improvement in left arm and leg weakness. he denies cad or smoking history. He is feeling better and weakness improved NEUROLOGICAL EXAMINATION Alert oriented x 3 speech is dysarthric eomi, pupils reactive left sided facial palsy Left sided mild hemiparesis ct head and mri confirmed there right internal capsule lacunar infarct carotid ultrasound was normal in october 2019 mra showed there is mild basilar stenosis Assessment/Plan 74 year old male history of HTN,DM. He has been admitted to hospital for tia and symptoms resolved was started on aspirin and statin ( patient says he was taking all medication, he was prescribed). He came with right internal capsule lacunar infarct Plan: switch to plavix, d/c aspirin and max lipitor to 80 mg once a day - mild basilar artery stenosis , continue medical treatment - He might need loop recording for possible paroxysmal atrial fibrillation - Thanking you so much Moisés Mays MD
[2019-11-12] MEDS: INSULIN SLIDING SCALE (NOVOLOG) 1 VIAL SQ SCH ×2 (06:18→16:36)
[2019-11-12 08:02] LABS: BASO % 0.4 % (0-2.0); EOS % 2.1 % (0-4.5); LYMPH % 38.1 % (8-40); MCHC 34.2 g/dl (32.0-35.9); MEAN CELL VOLUME 90.5 fl (80-96); MEAN PLT VOLUME 8.6 fl (7.5-11.1); MONO % 8.7 % (3.8-10.2); NEUT % 50.7 % (42.8-82.8); PLATELET COUNT 206 K/MM3 (134-434); RDW 13.9 % (11.9-15.9); WHITE BLOOD COUNT 6.3 K/mm3 (4.0-10.0)
[2019-11-12 08:29] LABS: BLOOD UREA NITROGEN 18.5 mg/dL (7-18); CREATININE 1.3 mg/dL (0.55-1.3); POTASSIUM 4.1 mmol/L (3.5-5.1)
[2019-11-12] MEDS: amLODIPine BESYLATE 10 MG TABLET (FP) PO SCH (10:08)
[2019-11-12] MEDS: CLOPIDOGREL BISULFATE 75 MG TABLET (FP) PO SCH (10:08)
[2019-11-12] MEDS: RAMIPRIL 5 MG CAPSULE (FP) PO SCH (10:08)
[2019-11-12] MEDS: ATORVASTATIN CA 80 MG TABLET (FP) PO SCH (21:30)
--- NOTE | 2019-11-12 21:32 | PN ---
Progress Note, Physician History of Present Illness: Pt is stable No Fever NO SOB No Chest pain [facility] Pt BP is better Blood sugar High Metformin/Glipizide/Januvia - Current Medication List Current Medications: Active Medications Amlodipine Besylate (Norvasc -) 10 mg PO DAILY [facility] Last Admin: 11/12/19 10:08 Dose: 10 mg Documented by: Atorvastatin Calcium (Lipitor -) 80 mg PO HS [facility] Last Admin: 11/11/19 21:33 Dose: 80 mg Documented by: Clopidogrel Bisulfate (Plavix -) 75 mg PO DAILY [facility] Last Admin: 11/12/19 10:08 Dose: 75 mg Documented by: Insulin Aspart (Novolog Vial Sliding Scale -) 1 vial SQ BIDAC [facility]; Protocol Last Admin: 11/12/19 16:36 Dose: 8 unit Documented by: Metoprolol Succinate (Toprol Xl -) 50 mg PO DAILY [facility] Last Admin: 11/12/19 10:08 Dose: 50 mg Documented by: Ramipril (Altace -) 5 mg PO DAILY [facility] Last Admin: 11/12/19 10:08 Dose: 5 mg Documented by: - Objective Vital Signs: Vital Signs Temperature 98.6 F 11/12/19 18:00 Pulse Rate 71 11/12/19 18:00 Respiratory Rate 18 11/12/19 18:00 Blood Pressure 141/61 11/12/19 18:00 O2 Sat by Pulse Oximetry (%) 98 11/12/19 09:50 Labs: CBC, BMP 11/12/19 06:48 11/12/19 06:48 INR, PTT INR 0.94 (0.83-1.09) 11/09/19 17:07 Problem List - Problems (1) CVA (cerebral vascular accident) Code(s): I63.9 - CEREBRAL INFARCTION, UNSPECIFIED Qualifiers: CVA mechanism: unspecified Qualified Code(s): I63.9 - Cerebral infarction, unspecified (2) Amaurosis fugax Code(s): G45.3 - AMAUROSIS FUGAX (3) BPH (benign prostatic hyperplasia) Code(s): N40.0 - BENIGN PROSTATIC HYPERPLASIA WITHOUT LOWER URINRY TRACT SYMP (4) Diabetes Code(s): E11.9 - TYPE 2 DIABETES MELLITUS WITHOUT COMPLICATIONS (5) Diabetic retinopathy Code(s): E11.319 - TYPE 2 DIABETES W UNSP DIABETIC RTNOP W/O MACULAR EDEMA (6) Raised prostate specific antigen Code(s): R97.20 - ELEVATED PROSTATE SPECIFIC ANTIGEN [PSA] (7) Renal failure (ARF), acute on chronic Code(s): N17.9 - ACUTE KIDNEY FAILURE, UNSPECIFIED; N18.9 - CHRONIC KIDNEY DISEASE, UNSPECIFIED (8) TIA (transient ischemic attack) Code(s): G45.9 - TRANSIENT CEREBRAL ISCHEMIC ATTACK, UNSPECIFIED
[2019-11-13] MEDS: glipiZIDE 5 MG TABLET (FP) PO SCH ×2 (06:32→16:40)
[2019-11-13] MEDS: INSULIN SLIDING SCALE (NOVOLOG) 1 VIAL SQ SCH ×3 (06:32→16:41)
--- NOTE | 2019-11-13 09:38 | PN ---
Progress Note, [employer] - Note Progress Note: Selected Entries 11/12/19 11/12/19 11/12/19 09:00 09:50 10:24 Breakfast 100% Diet Tolerated Well Lunch Supper Temperature Blood Pressure O2 Sat by Pulse 98 98 Oximetry (%) Oxygen Delivery Room Air Method 11/12/19 11/12/19 11/12/19 14:54 18:00 21:00 Breakfast Diet Tolerated Well Well Lunch 75% Supper 75% Temperature Blood Pressure O2 Sat by Pulse 98 Oximetry (%) Oxygen Delivery Room Air Method 11/12/19 11/12/19 11/13/19 22:00 23:00 02:00 Breakfast Diet Tolerated Well Lunch Supper Temperature 98.1 F Blood Pressure 154/82 O2 Sat by Pulse 98 96 Oximetry (%) Oxygen Delivery Method 11/13/19 06:00 Breakfast Diet Tolerated Lunch Supper Temperature 98.2 F Blood Pressure 152/72 O2 Sat by Pulse 97 Oximetry (%) Oxygen Delivery Method Laboratory Tests 11/12/19 06:[address] head and mri confirmed there right internal capsule lacunar infarct Dysarthria AND facial droop IMPROVING. Smile more symmetric. Unable to isolate and retract left facial muscle independently. On reg diet/thin liquids with good appetite and tolerance [facility]
[2019-11-13] MEDS: amLODIPine BESYLATE 10 MG TABLET (FP) PO SCH (10:14)
[2019-11-13] MEDS: CLOPIDOGREL BISULFATE 75 MG TABLET (FP) PO SCH (10:14)
[2019-11-13] MEDS: RAMIPRIL 5 MG CAPSULE (FP) PO SCH (10:14)
--- NOTE | 2019-11-13 12:28 | CON.CARD ---
Cardiology Consult (text) - Consultation Consultation Note: cc: facial droop, slurred speech, arm weakness, gait instability hpi: 74 m hx htn, hld, dm here with facial droop, slurred speech, arm weakness, gait instability. No cp sob palps dizzy loc pnd orthopnea le edema. Found to have cva. pmh: per hpi psh: per hpi social: no tob fam: no premature cad, scd ros: per hpi; all others nl meds: Ambulatory Orders Atorvastatin Ca [Lipitor] 10 mg PO HS 10/26/19 Empagliflozin [Jardiance] 25 mg PO DAILY 10/26/19 Glipizide/Metformin HCl [Glipizide-Metformin 5-500 mg] 1 each PO TID 10/26/19 Ramipril 5 mg PO DAILY 10/26/19 Semaglutide [Ozempic] 1 mg SQ DAILY 10/26/19 pe: Vital Signs Period Temp Pulse Resp BP Sys/Pastor Pulse Ox Last 24 Hr 97.6 F-99.1 F 55-71 16-18 141-154/59-82 96-98 nad no jvd rrr s1s2 no mrg cta bl nl eff aao3 no le e/c/c abd nt nd pos bs no jaundice diaphoresis pos dp pt no carotid bruits Laboratory Last Values WBC 6.3 K/mm3 (4.0-10.0) 11/12/19 06:48 RBC 4.20 M/mm3 (4.00-5.60) 11/12/19 06:48 Hgb 13.0 GM/dL (11.7-16.9) 11/12/19 06:48 Hct 38.0 % (35.4-49) 11/12/19 06:48 MCV 90.5 fl (80-96) 11/12/19 06:48 MCH 31.0 pg (25.7-33.7) 11/12/19 06:48 MCHC 34.2 g/dl (32.0-35.9) 11/12/19 06:48 RDW 13.9 % (11.9-15.9) 11/12/19 06:48 Plt Count 206 K/MM3 (134-434) 11/12/19 06:48 MPV 8.6 fl (7.5-11.1) 11/12/19 06:48 Absolute Neuts (auto) 3.2 K/mm3 (1.5-8.0) 11/12/19 06:48 Neutrophils % 50.7 % (42.8-82.8) 11/12/19 06:48 Lymphocytes % 38.1 % (8-40) 11/12/19 06:48 Monocytes % 8.7 % (3.8-10.2) 11/12/19 06:48 Eosinophils % 2.1 % (0-4.5) D 11/12/19 06:48 Basophils % 0.4 % (0-2.0) 11/12/19 06:48 Nucleated RBC % 0 % (0-0) 11/12/19 06:48 PT with INR 11.10 SEC (9.7-13.0) 11/09/19 17:07 INR 0.94 (0.83-1.09) 11/09/19 17:07 PTT (Actin FS) 30.0 SECONDS (25.2-36.5) 11/09/19 17:07 Sodium 142 mmol/L (136-145) 11/12/19 06:48 Potassium 4.1 mmol/L (3.5-5.1) 11/12/19 06:48 Chloride 109 mmol/L (98-107) H 11/12/19 06:48 Carbon Dioxide 23 mmol/L (21-32) 11/12/19 06:48 Anion Gap 9 MMOL/L (8-16) 11/12/19 06:48 BUN 18.5 mg/dL (7-18) H 11/12/19 06:48 Creatinine 1.3 mg/dL (0.55-1.3) 11/12/19 06:48 Est GFR (CKD-EPI)AfAm 62.30 11/12/19 06:48 Est GFR (CKD-EPI)NonAf 53.75 11/12/19 06:48 POC Glucometer 233 UNITS (80-120) 11/13/19 05:49 Random Glucose 202 mg/dL (74-106) H 11/12/19 06:48 Hemoglobin A1c % 8.0 % (4.2-6.3) H 11/10/19 05:50 Calcium 9.0 mg/dL (8.5-10.1) 11/12/19 06:48 Total Bilirubin 0.5 mg/dL (0.2-1) 11/09/19 17:07 AST 36 U/L (15-37) 11/09/19 17:07 ALT 31 U/L (13-61) 11/09/19 17:07 Alkaline Phosphatase 94 U/L (45-117) 11/09/19 17:07 Creatine Kinase 202 U/L (26-308) 11/09/19 17:07 Creatine Kinase Index No Result Required. 11/09/19 17:07 CK-MB (CK-2) < 1.0 ng/mL (0.5-3.6) 11/09/19 17:07 Troponin I < 0.02 ng/ml (0.00-0.05) 11/09/19 17:07 Total Protein 7.7 g/dl (6.4-8.2) 11/09/19 17:07 Albumin 4.0 g/dl (3.4-5.0) 11/09/19 17:07 Triglycerides 71 mg/dL (0-150) 11/10/19 05:50 Cholesterol 134 mg/dL (50-200) 11/10/19 05:50 Total LDL Cholesterol 80 mg/dL (5-100) 11/10/19 05:50 HDL Cholesterol 44 mg/dL (40-60) 11/10/19 05:50 Urine Color Yellow 11/09/19 18:00 Urine Appearance Clear 11/09/19 18:00 Urine pH 5.0 (5.0-8.0) 11/09/19 18:00 Ur Specific [place] 1.017 (1.010-1.035) 11/09/19 18:00 Urine Protein Negative (NEGATIVE) 11/09/19 18:00 Urine Glucose (UA) 3+ (NEGATIVE) H 11/09/19 18:00 Urine Ketones Negative (NEGATIVE) 11/09/19 18:00 Urine Blood Trace (NEGATIVE) 11/09/19 18:00 Urine Nitrite Negative (NEGATIVE) 11/09/19 18:00 Urine Bilirubin Negative (NEGATIVE) 11/09/19 18:00 Urine Urobilinogen 0.2 mg/dL (0.2-1.0) 11/09/19 18:00 Ur Leukocyte Esterase 2+ (NEGATIVE) H 11/09/19 18:00 Urine WBC (Auto) 305 /uL (0-25.8) 11/09/19 18:00 Urine RBC (Auto) 5 /uL (0-23.9) 11/09/19 18:00 Urine Casts (Auto) 0 /uL (0-3.1) 11/09/19 18:00 U Epithel Cells (Auto) 9 /uL (0-25.1) 11/09/19 18:00 Urine Bacteria (Auto) 479 /uL (0-1359) 11/09/19 18:00 COVID-19 (BEATRIZ) Not detected (Not Detected) 11/09/19 17:43 Anti-A Titer Cancelled 11/09/19 17:07 Blood Type Cancelled 11/09/19 17:07 Antibody Screen Cancelled 11/09/19 17:07 echo 10/2019: nl lv/rv, no sig valve path ecg: unremarkable tele: sr a/p: 74 m hx htn, hld, dm here with facial droop, slurred speech, arm weakness, gait instability. cva: -recent echo unremarkable -tele unremarkable so far, will need extended monitoring as outpt with event monitor or loop recorder to detect occult afib. -PT/Rehab eval -cont plavix (changed from asa by neuro), statin, bp control htn: -cont current meds hld: -cont statin
--- NOTE | 2019-11-13 17:36 | PN ---
Progress Note (short form) - Note Progress Note: HPI 74 year old male history of HTN,DM. Patient has recent stroke in right periventricular area, and symptoms resolved.Patient was started on lipitor and aspirin, which he was not taking it before. As per patient he was taking these medicaiton and yesterday he noticed left facial weakness and arm and leg weakness. Patient is able to swallow and there has been mild improvement in left arm and leg weakness. he denies cad or smoking history. feeling better and waiting for placement NEUROLOGICAL EXAMINATION Alert oriented x 3 speech is dysarthric eomi, pupils reactive left sided facial palsy Left sided mild hemiparesis ct head and mri confirmed there right internal capsule lacunar infarct carotid ultrasound was normal in october 2019 mra showed there is mild basilar stenosis Assessment/Plan 74 year old male history of HTN,DM. He has been admitted to [facility] for tia and symptoms resolved was started on aspirin and statin ( patient says he was taking all medication, he was prescribed). He came with right internal capsule lacunar infarct Plan: switch to plavix, d/c aspirin and max lipitor to 80 mg once a day - mild basilar artery stenosis , continue medical treatment , no intervention needed - He might need loop recording for possible paroxysmal atrial fibrillation - waiting for rehab placement - Thanking you so much Moisés Mays MD
--- NOTE | 2019-11-13 19:41 | PN ---
Progress Note, Physician History of Present Illness: Pt seen by Meenakshi Esquivel for swallow eval doing well No Fever No SOB No chest pain No Palpitations No GI bleeding - Current Medication List Current Medications: Active Medications Amlodipine Besylate (Norvasc -) 10 mg PO DAILY [facility] Last Admin: 11/13/19 10:14 Dose: 10 mg Documented by: Atorvastatin Calcium (Lipitor -) 80 mg PO HS [facility] Last Admin: 11/12/19 21:30 Dose: 80 mg Documented by: Clopidogrel Bisulfate (Plavix -) 75 mg PO DAILY [facility] Last Admin: 11/13/19 10:14 Dose: 75 mg Documented by: Glipizide (Glucotrol -) 5 mg PO BID@0700,1630 [facility] Last Admin: 11/13/19 16:40 Dose: 5 mg Documented by: Insulin Aspart (Novolog Vial Sliding Scale -) 1 vial SQ BIDAC [facility]; Protocol Last Admin: 11/13/19 16:41 Dose: 2 unit Documented by: Metformin HCl (Glucophage Xr -) 500 mg PO BIDAC [facility] Last Admin: 11/13/19 16:40 Dose: 500 mg Documented by: Metoprolol Succinate (Toprol Xl -) 50 mg PO DAILY [facility] Last Admin: 11/13/19 10:14 Dose: 50 mg Documented by: Ramipril (Altace -) 5 mg PO DAILY [facility] Last Admin: 11/13/19 10:14 Dose: 5 mg Documented by: - Objective Vital Signs: Vital Signs Temperature 97.5 F L 11/13/19 18:00 Pulse Rate 56 L 11/13/19 18:00 Respiratory Rate 20 11/13/19 18:00 Blood Pressure 147/79 11/13/19 18:00 O2 Sat by Pulse Oximetry (%) 98 11/13/19 18:00 Constitutional: Yes: No Distress Eyes: Yes: Conjunctiva Clear, EOM Intact HENT: Yes: Atraumatic, Normocephalic Neck: Yes: Supple, Trachea Midline Cardiovascular: Yes: Regular Rate and Rhythm, S1, S2 Respiratory: Yes: Regular, CTA Bilaterally Gastrointestinal: Yes: Normal Bowel Sounds, Soft Musculoskeletal: Yes: Joint Stiffness Edema: No Peripheral Pulses WNL: Yes Labs: CBC, BMP 11/12/19 06:48 11/12/19 06:48 INR, PTT INR 0.94 (0.83-1.09) 11/09/19 17:07 Problem List - Problems (1) CVA (cerebral vascular accident) Code(s): I63.9 - CEREBRAL INFARCTION, UNSPECIFIED Qualifiers: CVA mechanism: unspecified Qualified Code(s): I63.9 - Cerebral infarction, unspecified (2) Amaurosis fugax Code(s): G45.3 - AMAUROSIS FUGAX (3) BPH (benign prostatic hyperplasia) Code(s): N40.0 - BENIGN PROSTATIC HYPERPLASIA WITHOUT LOWER URINRY TRACT SYMP (4) Diabetes Code(s): E11.9 - TYPE 2 DIABETES MELLITUS WITHOUT COMPLICATIONS (5) Diabetic retinopathy Code(s): E11.319 - TYPE 2 DIABETES W UNSP DIABETIC RTNOP W/O MACULAR EDEMA (6) Raised prostate specific antigen Code(s): R97.20 - ELEVATED PROSTATE SPECIFIC ANTIGEN [PSA] (7) Renal failure (ARF), acute on chronic Code(s): N17.9 - ACUTE KIDNEY FAILURE, UNSPECIFIED; N18.9 - CHRONIC KIDNEY DISEASE, UNSPECIFIED (8) TIA (transient ischemic attack) Code(s): G45.9 - TRANSIENT CEREBRAL ISCHEMIC ATTACK, UNSPECIFIED
[2019-11-13] MEDS: ATORVASTATIN CA 80 MG TABLET (FP) PO SCH (22:06)
[2019-11-14] MEDS: glipiZIDE 5 MG TABLET (FP) PO SCH ×2 (06:42→16:45)
[2019-11-14] MEDS: INSULIN SLIDING SCALE (NOVOLOG) 1 VIAL SQ SCH ×2 (06:42→16:44)
[2019-11-14] MEDS ORDERED: PT OWN MED DRAWER 7, Y5N ONE (09:43)
[2019-11-14] MEDS: amLODIPine BESYLATE 10 MG TABLET (FP) PO SCH (09:57)
[2019-11-14] MEDS: RAMIPRIL 5 MG CAPSULE (FP) PO SCH (09:57)
[2019-11-14] MEDS: CLOPIDOGREL BISULFATE 75 MG TABLET (FP) PO SCH (09:57)
--- NOTE | 2019-11-14 12:15 | PN ---
Progress Note, Physician History of Present Illness: Spoke with Neurology Pt will Be referred to Dr Reinaldo Dun[facility] [phone] as out patient No Fever No SOB No chest pain - Current Medication List Current Medications: Active Medications Amlodipine Besylate (Norvasc -) 10 mg PO DAILY [facility] Last Admin: 11/14/19 09:57 Dose: 10 mg Documented by: Atorvastatin Calcium (Lipitor -) 80 mg PO HS [facility] Last Admin: 11/13/19 22:06 Dose: 80 mg Documented by: Clopidogrel Bisulfate (Plavix -) 75 mg PO DAILY [facility] Last Admin: 11/14/19 09:57 Dose: 75 mg Documented by: Glipizide (Glucotrol -) 5 mg PO BID@0700,1630 [facility] Last Admin: 11/14/19 06:42 Dose: 5 mg Documented by: Insulin Aspart (Novolog Vial Sliding Scale -) 1 vial SQ BIDAC [facility]; Protocol Last Admin: 11/14/19 06:42 Dose: 2 unit Documented by: Metformin HCl (Glucophage Xr -) 500 mg PO BIDAC [facility] Last Admin: 11/14/19 06:42 Dose: 500 mg Documented by: Metoprolol Succinate (Toprol Xl -) 50 mg PO DAILY [facility] Last Admin: 11/14/19 09:57 Dose: 50 mg Documented by: Ramipril (Altace -) 5 mg PO DAILY [facility] Last Admin: 11/14/19 09:57 Dose: 5 mg Documented by: - Objective Vital Signs: Vital Signs Temperature 98.3 F 11/14/19 09:36 Pulse Rate 62 11/14/19 09:36 Respiratory Rate 18 11/14/19 09:36 Blood Pressure 136/56 L 11/14/19 09:36 O2 Sat by Pulse Oximetry (%) 97 11/14/19 09:36 Constitutional: Yes: Calm Eyes: Yes: Conjunctiva Clear, EOM Intact HENT: Yes: Atraumatic, Normocephalic Neck: Yes: Supple, Trachea Midline Cardiovascular: Yes: S1, S2 Labs: CBC, BMP 11/12/19 06:48 11/12/19 06:48 INR, PTT INR 0.94 (0.83-1.09) 11/09/19 17:07 Problem List - Problems (1) CVA (cerebral vascular accident) Code(s): I63.9 - CEREBRAL INFARCTION, UNSPECIFIED Qualifiers: CVA mechanism: unspecified Qualified Code(s): I63.9 - Cerebral infarction, unspecified (2) Amaurosis fugax Code(s): G45.3 - AMAUROSIS FUGAX (3) BPH (benign prostatic hyperplasia) Code(s): N40.0 - BENIGN PROSTATIC HYPERPLASIA WITHOUT LOWER URINRY TRACT SYMP (4) Diabetes Code(s): E11.9 - TYPE 2 DIABETES MELLITUS WITHOUT COMPLICATIONS (5) Diabetic retinopathy Code(s): E11.319 - TYPE 2 DIABETES W UNSP DIABETIC RTNOP W/O MACULAR EDEMA (6) Raised prostate specific antigen Code(s): R97.20 - ELEVATED PROSTATE SPECIFIC ANTIGEN [PSA] (7) Renal failure (ARF), acute on chronic Code(s): N17.9 - ACUTE KIDNEY FAILURE, UNSPECIFIED; N18.9 - CHRONIC KIDNEY DISEASE, UNSPECIFIED (8) TIA (transient ischemic attack) Code(s): G45.9 - TRANSIENT CEREBRAL ISCHEMIC ATTACK, UNSPECIFIED
--- NOTE | 2019-11-14 13:24 | PN ---
Progress Note (short form) - Note Progress Note: cc: facial droop, slurred speech, arm weakness, gait instability s: no chest pain, palps, dizziness, dyspnea Current Medications Generic Name Dose Route Start Last Admin Trade Name Bambi PRN Reason Stop Dose Admin Amlodipine Besylate 10 mg 11/11/19 21:15 11/14/19 09:57 Norvasc - PO 10 mg DAILY [facility] Administration Atorvastatin Calcium 80 mg 11/09/19 22:00 11/13/19 22:06 Lipitor - PO 80 mg HS [facility] Administration Clopidogrel Bisulfate 75 mg 11/10/19 13:30 11/14/19 09:57 Plavix - PO 75 mg DAILY [facility] Administration Glipizide 5 mg 11/13/19 07:00 11/14/19 06:42 Glucotrol - PO 5 mg BID@0700,1630 [facility] Administration Insulin Aspart 1 vial 11/10/19 07:00 11/14/19 06:42 Novolog Vial Sliding Scale - SQ 2 unit BIDAC [facility] Administration Protocol Metformin HCl 500 mg 11/13/19 07:00 11/14/19 06:42 Glucophage Xr - PO 500 mg BIDAC [facility] Administration Metoprolol Succinate 50 mg 11/10/19 21:15 11/14/19 09:57 Toprol Xl - PO 50 mg DAILY [facility] Administration Ramipril 5 mg 11/10/19 10:00 11/14/19 09:57 Altace - PO 5 mg DAILY [facility] Administration Vital Signs Period Temp Pulse Resp BP Sys/Pastor Pulse Ox Last 24 Hr 97.5 F-98.3 F 56-71 16-20 131-159/56-79 97-98 nad no jvd rrr s1s2 no mrg cta bl nl eff aao3 no le e/c/c abd nt nd pos bs no jaundice diaphoresis pos dp pt no carotid bruits echo 10/2019: nl lv/rv, no sig valve path ecg: unremarkable tele: sr a/p: 74 m hx htn, hld, dm here with facial droop, slurred speech, arm weakness, gait instability. cva: -recent echo unremarkable -tele unremarkable so far, will need extended monitoring as outpt with event monitor or loop recorder to detect occult afib. -PT/Rehab eval -cont plavix (changed from asa by neuro), statin, bp control htn: -cont current meds hld: -cont statin
--- NOTE | 2019-11-14 15:09 | HOL ---
Hook-up date: 2019-11-13 08:59:00 Duration: 23:16:00 Test Indications: R/O PROXIMAL AFIB Medications: 67731 QRS complexes 12 Ventricular ectopics which represent <1 % of total QRS comp. 26 Supraventricular ectopics which represent <1 % of total QRS comp. * Paced QRS complexs which represent % of total QRS comp. 4 % of Time Classified as Noise VENTRICULAR ECTOPY 9 Isolated 0 Bigeminal Cycles 0 Couplets 0 Runs 0 Beats in Runs * Beats LONGEST at * BPM at :: -- * Beats FASTEST at * BPM at :: -- SUPRAVENTRICULAR ECTOPY 26 Isolated 0 Couplets 0 Runs 0 Beats in Runs * Beats LONGEST at * BPM at :: -- * Beats FASTEST at * BPM at :: -- HEART RATES 50 MIN at 11:51:27 2019-11-13 64 AVG 96 MAX at 04:45:23 2019-11-14 LONGEST RR 1.392 secs at 13:14:05 2019-11-13 SCANNED BY: RAYMOND 11/14/19 Normal sinus rhythm throughout. Single APC's, Single VPC's. No VT or pauses. Confirmed by Madhav Yancey MD ([id number]) on 11/14/2019 3:08:45 PM Referred By: Eldon MARIE Overread By: Madhav Yancey MD
--- NOTE | 2019-11-14 17:07 | PN ---
Progress Note (short form) - Note Progress Note: HPI 74 year old male history of HTN,DM. Patient has recent stroke in right periventricular area, and symptoms resolved.Patient was started on lipitor and aspirin, which he was not taking it before. As per patient he was taking these medicaiton and yesterday he noticed left facial weakness and arm and leg weakness. Patient is able to swallow and there has been mild improvement in left arm and leg weakness. he denies cad or smoking history. feeling better and waiting for placement NEUROLOGICAL EXAMINATION Alert oriented x 3 speech is dysarthric eomi, pupils reactive left sided facial palsy Left sided mild hemiparesis ct head and mri confirmed there right internal capsule lacunar infarct carotid ultrasound was normal in october 2019 mra showed there is mild basilar stenosis Assessment/Plan 74 year old male history of HTN,DM. He has been admitted to [facility] for tia and symptoms resolved was started on aspirin and statin ( patient says he was taking all medication, he was prescribed). He came with right internal capsule lacunar infarct Plan: switch to plavix, d/c aspirin and max lipitor to 80 mg once a day - mild basilar artery stenosis , continue medical treatment , no intervention needed, Patient was provided with information about stroke neurologist for further opinion . - He might need loop recording for possible paroxysmal atrial fibrillation - waiting for rehab placement - Thanking you so much Moisés Mays MD
[2019-11-14] MEDS: ATORVASTATIN CA 80 MG TABLET (FP) PO SCH (21:57)
[2019-11-15] MEDS: INSULIN SLIDING SCALE (NOVOLOG) 1 VIAL SQ SCH (06:08)
[2019-11-15] MEDS: glipiZIDE 5 MG TABLET (FP) PO SCH (06:08)
[2019-11-15 07:10] LABS: BASO % 0.5 % (0-2.0); EOS % 1.5 % (0-4.5); HEMATOCRIT 36.7 % (35.4-49); HEMOGLOBIN 12.4 GM/dL (11.7-16.9); LYMPH % 44.8 % (8-40); MCH 30.3 pg (25.7-33.7); MCHC 33.6 g/dl (32.0-35.9); MEAN CELL VOLUME 90.1 fl (80-96); MEAN PLT VOLUME 8.5 fl (7.5-11.1); MONO % 7.3 % (3.8-10.2); NEUT % 45.9 % (42.8-82.8); PLATELET COUNT 226 K/MM3 (134-434); RBC 4.08 M/mm3 (4.00-5.60); WHITE BLOOD COUNT 6.8 K/mm3 (4.0-10.0)
[2019-11-15 07:26] LABS: BLOOD UREA NITROGEN 16.4 mg/dL (7-18); CALCIUM 8.9 mg/dL (8.5-10.1); CREATININE 1.2 mg/dL (0.55-1.3); POTASSIUM 4.2 mmol/L (3.5-5.1)
[2019-11-15] MEDS: RAMIPRIL 5 MG CAPSULE (FP) PO SCH (10:26)
[2019-11-15] MEDS: amLODIPine BESYLATE 10 MG TABLET (FP) PO SCH (10:26)
[2019-11-15] MEDS: CLOPIDOGREL BISULFATE 75 MG TABLET (FP) PO SCH (10:26)
--- NOTE | 2019-11-15 10:32 | DS ---
Physical Examination Vital Signs: Vital Signs Temperature 98.0 F 11/15/19 06:00 Pulse Rate 66 11/15/19 06:00 Respiratory Rate 18 11/15/19 06:00 Blood Pressure 135/58 L 11/15/19 06:00 O2 Sat by Pulse Oximetry (%) 75 L 11/14/19 22:00 Findings/Remarks: HPI 74 year old male history of HTN,DM. Patient has recent stroke in right periventricular area, and symptoms resolved.Patient was started on lipitor and aspirin, which he was not taking it before. As per patient he was taking these medicaiton and yesterday he noticed left facial weakness and arm and leg weakness. Patient is able to swallow and there has been mild improvement in left arm and leg weakness. he denies cad or smoking history. feeling better and waiting for placement NEUROLOGICAL EXAMINATION Alert oriented x 3 speech is dysarthric eomi, pupils reactive left sided facial palsy Left sided mild hemiparesis ct head and mri confirmed there right internal capsule lacunar infarct carotid ultrasound was normal in october 2019 mra showed there is mild basilar stenosis Assessment/Plan 74 year old male history of HTN,DM. He has been admitted to hospital for tia and symptoms resolved was started on aspirin and statin ( patient says he was taking all medication, he was prescribed). He came with right internal capsule lacunar infarct Plan: switch to plavix, d/c aspirin and max lipitor to 80 mg once a day - mild basilar artery stenosis , continue medical treatment , no intervention needed, Patient was provided with information about stroke neurologist for further opinion . Dr Reinaldo [facility] [phone] as out patient FU Pt Provided with MRI/CT was given on a disk Pt as OP will need Loop Recoder for Possible Paroxsmal Afib/ Current tele recording holter Benign Constitutional: Yes: Calm Eyes: Yes: Conjunctiva Clear, EOM Intact HENT: Yes: Atraumatic, Normocephalic Neck: Yes: Supple, Trachea Midline Cardiovascular: Yes: Regular Rate and Rhythm, S1, S2 Respiratory: Yes: Regular, CTA Bilaterally Gastrointestinal: Yes: Normal Bowel Sounds, Soft Musculoskeletal: Yes: Joint Stiffness Edema: No Peripheral Pulses WNL: Yes Neurological: Yes: Alert, Oriented (CVA with Rt hemiperisi/ Dysarthria/ Lt UL weaker than Lt Lower Limb/ Very nusteady gait/ Pt is stumbling) Psychiatric: Yes: Alert, Oriented Labs: CBC, BMP 11/15/19 05:41 11/15/19 05:41 Discharge Summary Problems reviewed: Yes Reason For Visit: URINARY TRACT INFECTION NEUROLOGICAL DEFICIT PRESE Current Active Problems CVA (cerebral vascular accident) (Acute) Hospital Course: 74 year old male history of HTN,DM. Patient has recent stroke in right periventricular area, and symptoms resolved.Patient was started on lipitor and aspirin, which he was not taking it before. As per patient he was taking these medicaiton and yesterday he noticed left facial weakness and arm and leg weakness. Patient is able to swallow and there has been mild improvement in left arm and leg weakness. he denies cad or smoking history. feeling better and waiting for placement NEUROLOGICAL EXAMINATION Alert oriented x 3 speech is dysarthric eomi, pupils reactive left sided facial palsy Left sided mild hemiparesis ct head and mri confirmed there right internal capsule lacunar infarct carotid ultrasound was normal in october 2019 mra showed there is mild basilar stenosis Assessment/Plan 74 year old male history of HTN,DM. He has been admitted to hospital for tia and symptoms resolved was started on aspirin and statin ( patient says he was taking all medication, he was prescribed). He came with right internal capsule lacunar infarct Plan: switch to plavix, d/c aspirin and max lipitor to 80 mg once a day - mild basilar artery stenosis , continue medical treatment , no intervention needed, Patient was provided with information about stroke neurologist for further opinion . ECHO : WNL 24 Holter: Official report Pending Condition: Guarded - Instructions Referrals: Fernanda Arevalo MD [Primary Care Provider] - Disposition: CUSTODIAL [facility]ACILITY - Home Medications Comprehensive Discharge Medication List: Ambulatory Orders Atorvastatin Ca [Lipitor] 10 mg PO HS 10/26/19 Empagliflozin [Jardiance] 25 mg PO DAILY 10/26/19 Glipizide/Metformin HCl [Glipizide-Metformin 5-500 mg] 1 each PO TID 10/26/19 Ramipril 5 mg PO DAILY 10/26/19 Semaglutide [Ozempic] 1 mg SQ DAILY 10/26/19 Plavix 75 mg podaily Metoprolol 50 Po BID
--- NOTE | 2019-11-15 10:42 | PN ---
Progress Note, Physician History of Present Illness: Pt is going to [facility] today MRA: Basilar Artery stenosis/ Rt Kvng pathology noted. Pt will FU as Op with Dr Reinaldo [facility]ham [facility] for Basilar stenosis [phone] as out patient Pt will see cardiology as Op for Loop recoder to look for any Paroxmal Afib Discussed with patient. - Current Medication List Current Medications: Active Medications Amlodipine Besylate (Norvasc -) 10 mg PO DAILY [facility] Last Admin: 11/15/19 10:26 Dose: 10 mg Documented by: Atorvastatin Calcium (Lipitor -) 80 mg PO HS [facility] Last Admin: 11/14/19 21:57 Dose: 80 mg Documented by: Clopidogrel Bisulfate (Plavix -) 75 mg PO DAILY [facility] Last Admin: 11/15/19 10:26 Dose: 75 mg Documented by: Glipizide (Glucotrol -) 5 mg PO BID@0700,1630 [facility] Last Admin: 11/15/19 06:08 Dose: 5 mg Documented by: Insulin Aspart (Novolog Vial Sliding Scale -) 1 vial SQ BIDAC [facility]; Protocol Last Admin: 11/15/19 06:08 Dose: Not Given Documented by: Metformin HCl (Glucophage Xr -) 500 mg PO BIDAC [facility] Last Admin: 11/15/19 06:08 Dose: 500 mg Documented by: Metoprolol Succinate (Toprol Xl -) 50 mg PO DAILY [facility] Last Admin: 11/15/19 10:26 Dose: 50 mg Documented by: Ramipril (Altace -) 5 mg PO DAILY [facility] Last Admin: 11/15/19 10:26 Dose: 5 mg Documented by: - Objective Vital Signs: Vital Signs Temperature 98.0 F 11/15/19 06:00 Pulse Rate 66 11/15/19 06:00 Respiratory Rate 18 11/15/19 06:00 Blood Pressure 135/58 L 11/15/19 06:00 O2 Sat by Pulse Oximetry (%) 75 L 11/14/19 22:00 Constitutional: Yes: Calm Eyes: Yes: Conjunctiva Clear, EOM Intact HENT: Yes: Atraumatic, Normocephalic (Lt Facial Hemiperisi) Neck: Yes: Supple, Trachea Midline Cardiovascular: Yes: Regular Rate and Rhythm, S1, S2 Respiratory: Yes: Regular, CTA Bilaterally Gastrointestinal: Yes: Normal Bowel Sounds, Soft Labs: CBC, BMP 11/15/19 05:41 11/15/19 05:41 INR, PTT INR 0.94 (0.83-1.09) 11/09/19 17:07 Problem List - Problems (1) CVA (cerebral vascular accident) Code(s): I63.9 - CEREBRAL INFARCTION, UNSPECIFIED Qualifiers: CVA mechanism: unspecified Qualified Code(s): I63.9 - Cerebral infarction, unspecified (2) Amaurosis fugax Code(s): G45.3 - AMAUROSIS FUGAX (3) BPH (benign prostatic hyperplasia) Code(s): N40.0 - BENIGN PROSTATIC HYPERPLASIA WITHOUT LOWER URINRY TRACT SYMP (4) Diabetes Code(s): E11.9 - TYPE 2 DIABETES MELLITUS WITHOUT COMPLICATIONS (5) Diabetic retinopathy Code(s): E11.319 - TYPE 2 DIABETES W UNSP DIABETIC RTNOP W/O MACULAR EDEMA (6) Raised prostate specific antigen Code(s): R97.20 - ELEVATED PROSTATE SPECIFIC ANTIGEN [PSA] (7) Renal failure (ARF), acute on chronic Code(s): N17.9 - ACUTE KIDNEY FAILURE, UNSPECIFIED; N18.9 - CHRONIC KIDNEY DISEASE, UNSPECIFIED (8) TIA (transient ischemic attack) Code(s): G45.9 - TRANSIENT CEREBRAL ISCHEMIC ATTACK, UNSPECIFIED
--- NOTE | 2019-11-15 12:20 | PN ---
Progress Note (short form) - Note Progress Note: cc: facial droop, slurred speech, arm weakness, gait instability s: no chest pain, palps, dizziness, dyspnea Current Medications Generic Name Dose Route Start Last Admin Trade Name Bambi PRN Reason Stop Dose Admin Amlodipine Besylate 10 mg 11/11/19 21:15 11/15/19 10:26 Norvasc - PO 10 mg DAILY [facility] Administration Atorvastatin Calcium 80 mg 11/09/19 22:00 11/14/19 21:57 Lipitor - PO 80 mg HS [facility]ICK[facility] Administration Clopidogrel Bisulfate 75 mg 11/10/19 13:30 11/15/19 10:26 Plavix - PO 75 mg DAILY [facility] Administration Glipizide 5 mg 11/13/19 07:00 11/15/19 06:08 Glucotrol - PO 5 mg BID@0700,1630 [facility] Administration Insulin Aspart 1 vial 11/10/19 07:00 11/15/19 06:08 Novolog Vial Sliding Scale - SQ Not Given BIDAC [facility] Protocol Metformin HCl 500 mg 11/13/19 07:00 11/15/19 06:08 Glucophage Xr - PO 500 mg BIDAC [facility] Administration Metoprolol Succinate 50 mg 11/10/19 21:15 11/15/19 10:26 Toprol Xl - PO 50 mg DAILY [facility] Administration Ramipril 5 mg 11/10/19 10:00 11/15/19 10:26 Altace - PO 5 mg DAILY [facility] Administration Vital Signs Period Temp Pulse Resp BP Sys/Pastor Pulse Ox Last 24 Hr 98.0 F-98.7 F 56-75 16-18 120-150/53-75 75-99 nad no jvd rrr s1s2 no mrg cta bl nl eff aao3 no le e/c/c abd nt nd pos bs no jaundice diaphoresis pos dp pt no carotid bruits echo 10/2019: nl lv/rv, no sig valve path ecg: unremarkable tele: sr a/p: 74 m hx htn, hld, dm here with facial droop, slurred speech, arm weakness, gait instability. cva: -recent echo unremarkable -tele unremarkable so far, will need extended monitoring as outpt with event monitor or loop recorder to detect occult afib. -PT/Rehab eval -cont plavix (changed from asa by neuro), statin, bp control htn: -cont current meds hld: -cont statin
[2019-11-15 13:56] VITALS: BP 155/66; PULSE 61; TEMP 98.2
--- NOTE | 2019-11-15 17:32 | PN ---
Progress Note (short form) - Note Progress Note: HPI 74 year old male history of HTN,DM. Patient has recent stroke in right periventricular area, and symptoms resolved.Patient was started on lipitor and aspirin, which he was not taking it before. As per patient he was taking these medicaiton and yesterday he noticed left facial weakness and arm and leg weakness. Patient is able to swallow and there has been mild improvement in left arm and leg weakness. he denies cad or smoking history. going to rehab . NEUROLOGICAL EXAMINATION Alert oriented x 3 speech is dysarthric eomi, pupils reactive left sided facial palsy Left sided mild hemiparesis ct head and mri confirmed there right internal capsule lacunar infarct carotid ultrasound was normal in october 2019 mra showed there is mild basilar stenosis Assessment/Plan 74 year old male history of HTN,DM. He has been admitted to hospital for tia and symptoms resolved was started on aspirin and statin ( patient says he was taking all medication, he was prescribed). He came with right internal capsule lacunar infarct Plan: switch to plavix, d/c aspirin and max lipitor to 80 mg once a day - mild basilar artery stenosis , continue medical treatment , no intervention needed, Patient was provided with information about stroke neurologist for further opinion . - He might need loop recording for possible paroxysmal atrial fibrillation - going to rehab today, no new complain, follow up outpatient - Thanking you so much Moisés Mays MD
== END 2019-11-15 14:45 | DRG 65 ==
LOC: SUPCPDRO 16:13 → JER 16:13 → JERBED 19:32 → J4S 22:11
PROVIDERS: ADMIT Internal Medicine; ATTEND Internal Medicine
DX: I63.9 Cerebral infarction, unspecified (principal); G81.94 Hemiplegia, unspecified affecting left nondominant side; G45.3 Amaurosis fugax; E11.9 Type 2 diabetes mellitus without complications; I10 Essential (primary) hypertension; R29.810 Facial weakness; E78.5 Hyperlipidemia, unspecified; I65.1 Occlusion and stenosis of basilar artery; N18.9 Chronic kidney disease, unspecified; E11.319 Type 2 diabetes mellitus with unspecified diabetic retinopathy without macular edema; N40.0 Benign prostatic hyperplasia without lower urinary tract symptoms
CPT/HCPCS: 36415; 70450-TC; 70544-TC; 70551-TC; 80048; 80053; 80061; 81003; 82550; 82553; 82962; 83036; 83721; 84484; 85025; 85027; 85610; 85730; 93005; 93010; 93225; 93226; 97116-GP; 97161-GP; 99291; U0003

== ENCOUNTER 2020-07-13 18:29 | Inpatient (IN) | payer OTHER ==
[2020-07-13 18:37] VITALS: BMI 32.5
[2020-07-13 19:52] LABS: BASO % 0.3 % (0-2.0); EOS % 0.4 % (0-4.5); HEMATOCRIT 40.4 % (35.4-49); HEMOGLOBIN 13.7 GM/dL (11.7-16.9); LYMPH % 28.4 % (8-40); MCH 30.4 pg (25.7-33.7); MCHC 33.8 g/dl (32.0-35.9); MEAN CELL VOLUME 89.8 fl (80-96); MEAN PLT VOLUME 8.5 fl (7.5-11.1); MONO % 12.5 % (3.8-10.2); NEUT % 58.4 % (42.8-82.8); PLATELET COUNT 208 K/MM3 (134-434); RDW 14.8 % (11.9-15.9); WHITE BLOOD COUNT 5.7 K/mm3 (4.0-10.0)
[2020-07-13 20:28] LABS: ALBUMIN 3.9 g/dl (3.4-5.0); ALK PHOS 101 U/L (45-117); ANION GAP 10 MMOL/L (8-16); BILIRUBIN,TOTAL 0.5 mg/dL (0.2-1); BLOOD UREA NITROGEN 18.2 mg/dL (7-18); CALCIUM 9.3 mg/dL (8.5-10.1); CHLORIDE 102 mmol/L (98-107); CO2 26 mmol/L (21-32); CREATININE 1.6 mg/dL (0.55-1.3); GLUCOSE,RANDOM 153 mg/dL (74-106); MAGNESIUM 2.3 mg/dL (1.8-2.4); PHOSPHOROUS 3.6 mg/dL (2.5-4.9); SGOT/AST 53 U/L (15-37); SGPT/ALT 70 U/L (13-61); SODIUM 138 mmol/L (136-145); TOT PROT 7.7 g/dl (6.4-8.2)
[2020-07-13 21:23] LABS: URINE APPEARANCE CLEAR; URINE BILIRUBIN NEGATIVE (NEGATIVE); URINE COLOR YELLOW; URINE GLUCOSE (UA) 3+ (NEGATIVE); URINE KETONE NEGATIVE (NEGATIVE); URINE LEUK ESTERASE NEGATIVE (NEGATIVE); URINE NITRITE NEGATIVE (NEGATIVE); URINE PROTEIN NEGATIVE (NEGATIVE); URINE UROBILINOGEN 0.2 mg/dL (0.2-1.0)
[2020-07-13] MEDS: SODIUM CHLORIDE 1,000 ML IV SCH (22:05)
[2020-07-13] MEDS ORDERED: ALBUTEROL SO4 HFA INHALER IH PRN (22:56)
[2020-07-13] MEDS ORDERED: ATORVASTATIN CA 10 MG TABLET (FP) ONE (23:27)
[2020-07-13] MEDS: ATORVASTATIN CA 10 MG TABLET (FP) PO SCH (23:28)
[2020-07-14 06:50] LABS: BASO % 0.4 % (0-2.0); EOS % 0.2 % (0-4.5); HEMATOCRIT 37.5 % (35.4-49); HEMOGLOBIN 12.9 GM/dL (11.7-16.9); LYMPH % 43.6 % (8-40); MCH 30.5 pg (25.7-33.7); MCHC 34.3 g/dl (32.0-35.9); MEAN CELL VOLUME 88.9 fl (80-96); MONO % 10.6 % (3.8-10.2); NEUT % 45.2 % (42.8-82.8); PLATELET COUNT 187 K/MM3 (134-434); RBC 4.21 M/mm3 (4.00-5.60); WHITE BLOOD COUNT 5.6 K/mm3 (4.0-10.0)
[2020-07-14 07:22] LABS: ALBUMIN 3.7 g/dl (3.4-5.0); CALCIUM 9.2 mg/dL (8.5-10.1)
[2020-07-14 07:23] LABS: BLOOD UREA NITROGEN 18.2 mg/dL (7-18)
[2020-07-14 07:25] LABS: CREATININE 1.3 mg/dL (0.55-1.3)
[2020-07-14 07:26] LABS: TOT PROT 7.1 g/dl (6.4-8.2)
[2020-07-14 07:28] LABS: BILIRUBIN,TOTAL 0.6 mg/dL (0.2-1)
[2020-07-14] MEDS: RAMIPRIL 5 MG CAPSULE PO SCH (09:03)
[2020-07-14] MEDS: CLOPIDOGREL BISULFATE 75 MG TABLET (FP) PO SCH (09:03)
[2020-07-14] MEDS: TAMSULOSIN HCL 0.4 MG CAP PO SCH (09:03)
[2020-07-14] MEDS: SODIUM CHLORIDE 1,000 ML IV SCH ×2 (17:44→21:41)
[2020-07-14] MEDS: ATORVASTATIN CA 10 MG TABLET (FP) PO SCH (21:43)
[2020-07-15 08:11] LABS: CALCIUM 8.7 mg/dL (8.5-10.1)
[2020-07-15 08:12] LABS: BLOOD UREA NITROGEN 17.1 mg/dL (7-18)
[2020-07-15 08:15] LABS: CREATININE 1.4 mg/dL (0.55-1.3)
[2020-07-15 08:17] LABS: BASO % 0.2 % (0-2.0); EOS % 0.2 % (0-4.5); HEMATOCRIT 35.8 % (35.4-49); HEMOGLOBIN 12.2 GM/dL (11.7-16.9); LYMPH % 44.4 % (8-40); MCH 30.4 pg (25.7-33.7); MCHC 34.1 g/dl (32.0-35.9); MEAN CELL VOLUME 89.1 fl (80-96); MEAN PLT VOLUME 8.3 fl (7.5-11.1); MONO % 8.9 % (3.8-10.2); NEUT % 46.3 % (42.8-82.8); PLATELET COUNT 182 K/MM3 (134-434); RBC 4.02 M/mm3 (4.00-5.60); WHITE BLOOD COUNT 5.1 K/mm3 (4.0-10.0)
[2020-07-15] MEDS ORDERED: PNEUMOC 13-VAL CONJ-DIP CRM/PF 0.5 ML DISP.SYRIN IM ONE (09:10)
[2020-07-15] MEDS: CLOPIDOGREL BISULFATE 75 MG TABLET (FP) PO SCH (09:14)
[2020-07-15] MEDS: RAMIPRIL 5 MG CAPSULE PO SCH (09:15)
[2020-07-15] MEDS: TAMSULOSIN HCL 0.4 MG CAP PO SCH (09:15)
[2020-07-15] MEDS ORDERED: CEFTRIAXONE 1 GM in DEXTROSE 5%-WATER - 50 ML IVPB ONE (16:23)
[2020-07-15] MEDS: ACETAMINOPHEN 325 MG TABLET (FP) PO PRN (16:39)
[2020-07-15] MEDS ORDERED: DEXTROSE 5%-WATER - 50 ML IVPB ONE (16:50)
[2020-07-15] MEDS ORDERED: cefTRIAXone SODIUM 1 GM VIAL ONE (16:50)
[2020-07-15] MEDS: ATORVASTATIN CA 10 MG TABLET (FP) PO SCH (21:13)
[2020-07-16] MEDS ORDERED: ACETAMINOPHEN 1000 MG/100 ML VIAL (NON FORMULARY) IVPB ONE (02:58)
[2020-07-16] MEDS ORDERED: RAMIPRIL 5 MG CAPSULE PO ONE (02:58)
[2020-07-16 07:34] LABS: BASO % 0.5 % (0-2.0); EOS % 0.2 % (0-4.5); HEMATOCRIT 35.3 % (35.4-49); HEMOGLOBIN 12.3 GM/dL (11.7-16.9); LYMPH % 35.2 % (8-40); MCH 30.7 pg (25.7-33.7); MCHC 34.7 g/dl (32.0-35.9); MEAN CELL VOLUME 88.5 fl (80-96); MEAN PLT VOLUME 8.5 fl (7.5-11.1); MONO % 7.1 % (3.8-10.2); PLATELET COUNT 182 K/MM3 (134-434); RBC 3.99 M/mm3 (4.00-5.60); RDW 14.7 % (11.9-15.9); WHITE BLOOD COUNT 5.4 K/mm3 (4.0-10.0)
[2020-07-16 07:49] LABS: BLOOD UREA NITROGEN 13.9 mg/dL (7-18)
[2020-07-16 07:55] LABS: CREATININE 1.3 mg/dL (0.55-1.3)
[2020-07-16] MEDS: CLOPIDOGREL BISULFATE 75 MG TABLET (FP) PO SCH (09:55)
[2020-07-16] MEDS: TAMSULOSIN HCL 0.4 MG CAP PO SCH (09:55)
[2020-07-16] MEDS: RAMIPRIL 5 MG CAPSULE PO SCH (09:56)
[2020-07-16] MEDS ORDERED: CEFEPIME HCL 1 GM VIAL (RESTRICTED TO ID) ONE (13:54)
[2020-07-16] MEDS ORDERED: DEXTROSE 5%-WATER - 50 ML IVPB ONE (13:54)
[2020-07-16] MEDS: CEFEPIME 1 GM in DEXTROSE 5%-WATER - 1 GM/50 ML IVPB IVPB SCH (13:55)
[2020-07-16] MEDS: ACETAMINOPHEN 325 MG TABLET (FP) PO PRN ×2 (13:56→20:36)
[2020-07-16] MEDS ORDERED: METOPROLOL TARTRATE 50 MG TABLET (FP) PO ONE (15:00)
[2020-07-16] MEDS: ASPIRIN COATED 81 MG TABLET.EC PO SCH (20:36)
[2020-07-16] MEDS: METOPROLOL TARTRATE 50 MG TABLET (FP) PO SCH (21:24)
[2020-07-16] MEDS: FAMOTIDINE 10 MG TABLET PO SCH (21:24)
[2020-07-16] MEDS: ATORVASTATIN CA 10 MG TABLET (FP) PO SCH (21:25)
[2020-07-17] MEDS ORDERED: DEXTROSE 5%-WATER - 50 ML IVPB ONE ×3 (00:55→17:19)
[2020-07-17] MEDS ORDERED: CEFEPIME HCL 1 GM VIAL (RESTRICTED TO ID) ONE ×3 (00:55→17:19)
[2020-07-17] MEDS: CEFEPIME 1 GM in DEXTROSE 5%-WATER - 1 GM/50 ML IVPB IVPB SCH ×4 (01:16→18:05)
[2020-07-17] MEDS: glipiZIDE 5 MG TABLET (FP) PO SCH (06:27)
[2020-07-17 08:16] LABS: BASO % 0.5 % (0-2.0); EOS % 0.5 % (0-4.5); HEMATOCRIT 36.6 % (35.4-49); HEMOGLOBIN 12.5 GM/dL (11.7-16.9); LYMPH % 31.6 % (8-40); MCH 30.7 pg (25.7-33.7); MCHC 34.1 g/dl (32.0-35.9); MEAN CELL VOLUME 89.9 fl (80-96); MONO % 7.1 % (3.8-10.2); NEUT % 60.3 % (42.8-82.8); RBC 4.07 M/mm3 (4.00-5.60); RDW 14.8 % (11.9-15.9); WHITE BLOOD COUNT 6.6 K/mm3 (4.0-10.0)
[2020-07-17 08:19] LABS: MEAN PLT VOLUME 9.5 fl (7.5-11.1); PLATELET COUNT 143 K/MM3 (134-434)
[2020-07-17 08:40] LABS: BLOOD UREA NITROGEN 12.5 mg/dL (7-18)
[2020-07-17 08:42] LABS: CALCIUM 8.8 mg/dL (8.5-10.1)
[2020-07-17 08:43] LABS: CREATININE 1.3 mg/dL (0.55-1.3)
[2020-07-17] MEDS: ASPIRIN COATED 81 MG TABLET.EC PO SCH (09:14)
[2020-07-17] MEDS: RAMIPRIL 5 MG CAPSULE PO SCH (09:15)
[2020-07-17] MEDS: CLOPIDOGREL BISULFATE 75 MG TABLET (FP) PO SCH (09:16)
[2020-07-17] MEDS: METOPROLOL TARTRATE 50 MG TABLET (FP) PO SCH ×2 (09:17→21:08)
[2020-07-17] MEDS: FAMOTIDINE 10 MG TABLET PO SCH ×2 (09:17→21:08)
[2020-07-17] MEDS: TAMSULOSIN HCL 0.4 MG CAP PO SCH (09:17)
[2020-07-17] MEDS: ACETAMINOPHEN 325 MG TABLET (FP) PO PRN (18:14)
[2020-07-17] MEDS: ATORVASTATIN CA 10 MG TABLET (FP) PO SCH (21:08)
[2020-07-18] MEDS ORDERED: CEFEPIME HCL 1 GM VIAL (RESTRICTED TO ID) ONE ×3 (01:17→18:20)
[2020-07-18] MEDS ORDERED: DEXTROSE 5%-WATER - 50 ML IVPB ONE ×3 (01:17→18:21)
[2020-07-18] MEDS: CEFEPIME 1 GM in DEXTROSE 5%-WATER - 1 GM/50 ML IVPB IVPB SCH ×3 (01:23→18:38)
[2020-07-18] MEDS: glipiZIDE 5 MG TABLET (FP) PO SCH (06:35)
[2020-07-18 07:32] LABS: BASO % 0.2 % (0-2.0); EOS % 0.8 % (0-4.5); HEMATOCRIT 34.4 % (35.4-49); LYMPH % 37.1 % (8-40); MCH 30.9 pg (25.7-33.7); MCHC 34.7 g/dl (32.0-35.9); MEAN PLT VOLUME 8.7 fl (7.5-11.1); MONO % 8.8 % (3.8-10.2); NEUT % 53.1 % (42.8-82.8); PLATELET COUNT 197 K/MM3 (134-434); RBC 3.87 M/mm3 (4.00-5.60); RDW 14.8 % (11.9-15.9); WHITE BLOOD COUNT 5.1 K/mm3 (4.0-10.0)
[2020-07-18 07:48] LABS: CALCIUM 8.9 mg/dL (8.5-10.1)
[2020-07-18 07:51] LABS: BLOOD UREA NITROGEN 14.7 mg/dL (7-18)
[2020-07-18 07:57] LABS: CREATININE 1.2 mg/dL (0.55-1.3)
[2020-07-18 09:12] LABS: ERYTHROCYTE SEDIMENTATION RATE 53 mm/hr (0-20)
[2020-07-18] MEDS: ASPIRIN COATED 81 MG TABLET.EC PO SCH (09:25)
[2020-07-18] MEDS: TAMSULOSIN HCL 0.4 MG CAP PO SCH (09:25)
[2020-07-18] MEDS: CLOPIDOGREL BISULFATE 75 MG TABLET (FP) PO SCH (09:25)
[2020-07-18] MEDS: METOPROLOL TARTRATE 50 MG TABLET (FP) PO SCH ×2 (09:25→21:39)
[2020-07-18] MEDS: RAMIPRIL 5 MG CAPSULE PO SCH (09:25)
[2020-07-18] MEDS: FAMOTIDINE 10 MG TABLET PO SCH ×2 (09:26→21:39)
[2020-07-18] MEDS: ACETAMINOPHEN 325 MG TABLET (FP) PO PRN (18:41)
[2020-07-18] MEDS: PARoxetine HCL 10 MG TABLET PO SCH (21:38)
[2020-07-18] MEDS: ATORVASTATIN CA 10 MG TABLET (FP) PO SCH (21:39)
[2020-07-19] MEDS ORDERED: DEXTROSE 5%-WATER - 50 ML IVPB ONE ×3 (00:57→16:07)
[2020-07-19] MEDS ORDERED: CEFEPIME HCL 1 GM VIAL (RESTRICTED TO ID) ONE ×3 (00:57→16:06)
[2020-07-19] MEDS: CEFEPIME 1 GM in DEXTROSE 5%-WATER - 1 GM/50 ML IVPB IVPB SCH ×3 (01:03→17:11)
[2020-07-19] MEDS: glipiZIDE 5 MG TABLET (FP) PO SCH (06:54)
[2020-07-19] MEDS: METOPROLOL TARTRATE 50 MG TABLET (FP) PO SCH ×2 (09:04→21:25)
[2020-07-19] MEDS: PARoxetine HCL 10 MG TABLET PO SCH (09:05)
[2020-07-19] MEDS: FAMOTIDINE 10 MG TABLET PO SCH ×2 (09:05→21:30)
[2020-07-19] MEDS: ASPIRIN COATED 81 MG TABLET.EC PO SCH (09:05)
[2020-07-19] MEDS: TAMSULOSIN HCL 0.4 MG CAP PO SCH (09:05)
[2020-07-19] MEDS: CLOPIDOGREL BISULFATE 75 MG TABLET (FP) PO SCH (09:05)
[2020-07-19] MEDS: RAMIPRIL 5 MG CAPSULE PO SCH (09:05)
[2020-07-19] MEDS ORDERED: PT OWN MED DRAWER 7, Y5N ONE (11:04)
[2020-07-19] MEDS: ACETAMINOPHEN 325 MG TABLET (FP) PO PRN (18:07)
[2020-07-19] MEDS: ATORVASTATIN CA 10 MG TABLET (FP) PO SCH (21:25)
[2020-07-19] MEDS: HEPARIN NA (PORCINE) 5,000 UNITS/ML 1ML VIAL SQ SCH (21:25)
[2020-07-20] MEDS ORDERED: CEFEPIME HCL 1 GM VIAL (RESTRICTED TO ID) ONE ×3 (01:16→16:58)
[2020-07-20] MEDS ORDERED: DEXTROSE 5%-WATER - 50 ML IVPB ONE ×3 (01:16→16:58)
[2020-07-20] MEDS: CEFEPIME 1 GM in DEXTROSE 5%-WATER - 1 GM/50 ML IVPB IVPB SCH ×3 (01:58→17:47)
[2020-07-20] MEDS: glipiZIDE 5 MG TABLET (FP) PO SCH (06:34)
[2020-07-20 07:52] LABS: BASO % 0.1 % (0-2.0); EOS % 0.8 % (0-4.5); HEMATOCRIT 32.5 % (35.4-49); HEMOGLOBIN 11.1 GM/dL (11.7-16.9); LYMPH % 24.3 % (8-40); MCH 30.1 pg (25.7-33.7); MCHC 34.2 g/dl (32.0-35.9); MEAN PLT VOLUME 8.6 fl (7.5-11.1); MONO % 9.7 % (3.8-10.2); NEUT % 65.1 % (42.8-82.8); PLATELET COUNT 254 K/MM3 (134-434); RBC 3.69 M/mm3 (4.00-5.60); RDW 14.7 % (11.9-15.9); WHITE BLOOD COUNT 6.1 K/mm3 (4.0-10.0)
[2020-07-20 08:13] LABS: BLOOD UREA NITROGEN 14.2 mg/dL (7-18)
[2020-07-20 08:14] LABS: CALCIUM 8.8 mg/dL (8.5-10.1)
[2020-07-20] MEDS: ASPIRIN COATED 81 MG TABLET.EC PO SCH (09:07)
[2020-07-20] MEDS: FAMOTIDINE 10 MG TABLET PO SCH ×2 (09:07→21:40)
[2020-07-20] MEDS: RAMIPRIL 5 MG CAPSULE PO SCH (09:07)
[2020-07-20] MEDS: TAMSULOSIN HCL 0.4 MG CAP PO SCH (09:07)
[2020-07-20] MEDS: PARoxetine HCL 10 MG TABLET PO SCH (09:07)
[2020-07-20] MEDS: HEPARIN NA (PORCINE) 5,000 UNITS/ML 1ML VIAL SQ SCH ×2 (09:07→21:41)
[2020-07-20] MEDS: METOPROLOL TARTRATE 50 MG TABLET (FP) PO SCH ×2 (09:07→21:40)
[2020-07-20] MEDS: CLOPIDOGREL BISULFATE 75 MG TABLET (FP) PO SCH (09:07)
[2020-07-20] MEDS: ATORVASTATIN CA 10 MG TABLET (FP) PO SCH (21:40)
[2020-07-21] MEDS ORDERED: CEFEPIME HCL 1 GM VIAL (RESTRICTED TO ID) ONE ×3 (01:01→16:20)
[2020-07-21] MEDS ORDERED: DEXTROSE 5%-WATER - 50 ML IVPB ONE ×3 (01:01→16:20)
[2020-07-21] MEDS: CEFEPIME 1 GM in DEXTROSE 5%-WATER - 1 GM/50 ML IVPB IVPB SCH ×3 (01:24→17:15)
[2020-07-21] MEDS: glipiZIDE 5 MG TABLET (FP) PO SCH (06:16)
[2020-07-21 07:39] LABS: BASO % 0.3 % (0-2.0); EOS % 1.9 % (0-4.5); HEMATOCRIT 32.3 % (35.4-49); HEMOGLOBIN 11.1 GM/dL (11.7-16.9); LYMPH % 26.7 % (8-40); MCH 30.2 pg (25.7-33.7); MCHC 34.4 g/dl (32.0-35.9); MEAN PLT VOLUME 8.4 fl (7.5-11.1); MONO % 11.1 % (3.8-10.2); PLATELET COUNT 291 K/MM3 (134-434); RBC 3.67 M/mm3 (4.00-5.60); RDW 14.5 % (11.9-15.9); WHITE BLOOD COUNT 6.2 K/mm3 (4.0-10.0)
[2020-07-21 08:00] LABS: CALCIUM 8.6 mg/dL (8.5-10.1)
[2020-07-21 08:01] LABS: BLOOD UREA NITROGEN 11.8 mg/dL (7-18)
[2020-07-21 08:04] LABS: CREATININE 0.9 mg/dL (0.55-1.3)
[2020-07-21] MEDS: TAMSULOSIN HCL 0.4 MG CAP PO SCH (08:58)
[2020-07-21] MEDS: ASPIRIN COATED 81 MG TABLET.EC PO SCH (09:00)
[2020-07-21] MEDS: HEPARIN NA (PORCINE) 5,000 UNITS/ML 1ML VIAL SQ SCH ×2 (09:00→21:31)
[2020-07-21] MEDS: METOPROLOL TARTRATE 50 MG TABLET (FP) PO SCH ×2 (09:01→21:31)
[2020-07-21] MEDS: CLOPIDOGREL BISULFATE 75 MG TABLET (FP) PO SCH (09:01)
[2020-07-21] MEDS: RAMIPRIL 5 MG CAPSULE PO SCH (09:01)
[2020-07-21] MEDS: FAMOTIDINE 10 MG TABLET PO SCH ×2 (09:01→21:31)
[2020-07-21] MEDS: PARoxetine HCL 10 MG TABLET PO SCH (09:01)
[2020-07-21] MEDS: ATORVASTATIN CA 10 MG TABLET (FP) PO SCH (21:31)
[2020-07-22] MEDS ORDERED: CEFEPIME HCL 1 GM VIAL (RESTRICTED TO ID) ONE ×3 (01:04→17:30)
[2020-07-22] MEDS ORDERED: DEXTROSE 5%-WATER - 50 ML IVPB ONE ×3 (01:04→17:30)
[2020-07-22] MEDS: CEFEPIME 1 GM in DEXTROSE 5%-WATER - 1 GM/50 ML IVPB IVPB SCH ×3 (01:53→17:34)
[2020-07-22] MEDS: glipiZIDE 5 MG TABLET (FP) PO SCH (06:39)
[2020-07-22] MEDS: TAMSULOSIN HCL 0.4 MG CAP PO SCH (08:35)
[2020-07-22] MEDS: FAMOTIDINE 10 MG TABLET PO SCH ×2 (09:21→21:14)
[2020-07-22] MEDS: ASPIRIN COATED 81 MG TABLET.EC PO SCH (09:22)
[2020-07-22] MEDS: RAMIPRIL 5 MG CAPSULE PO SCH (09:22)
[2020-07-22] MEDS: PARoxetine HCL 10 MG TABLET PO SCH (09:22)
[2020-07-22] MEDS: HEPARIN NA (PORCINE) 5,000 UNITS/ML 1ML VIAL SQ SCH ×2 (09:22→21:13)
[2020-07-22] MEDS: CLOPIDOGREL BISULFATE 75 MG TABLET (FP) PO SCH (09:22)
[2020-07-22] MEDS: METOPROLOL TARTRATE 50 MG TABLET (FP) PO SCH ×2 (09:22→21:14)
[2020-07-22 15:08] LABS: MYCOPLASMA PNEUMONIAE,IG G AB 176 U/mL (0-99); MYCOPLASMA PNEUMONIAE,IGM AB <770 U/mL (0-769)
[2020-07-22] MEDS: ATORVASTATIN CA 10 MG TABLET (FP) PO SCH (21:14)
[2020-07-23] MEDS ORDERED: DEXTROSE 5%-WATER - 50 ML IVPB ONE ×3 (01:28→17:31)
[2020-07-23] MEDS ORDERED: CEFEPIME HCL 1 GM VIAL (RESTRICTED TO ID) ONE ×3 (01:28→17:31)
[2020-07-23] MEDS: CEFEPIME 1 GM in DEXTROSE 5%-WATER - 1 GM/50 ML IVPB IVPB SCH ×3 (01:38→17:37)
[2020-07-23] MEDS: glipiZIDE 5 MG TABLET (FP) PO SCH (06:41)
[2020-07-23] MEDS: ASPIRIN COATED 81 MG TABLET.EC PO SCH (09:04)
[2020-07-23] MEDS: METOPROLOL TARTRATE 50 MG TABLET (FP) PO SCH ×2 (09:05→22:47)
[2020-07-23] MEDS: PARoxetine HCL 10 MG TABLET PO SCH (09:05)
[2020-07-23] MEDS: RAMIPRIL 5 MG CAPSULE PO SCH (09:06)
[2020-07-23] MEDS: FAMOTIDINE 10 MG TABLET PO SCH ×2 (09:07→22:47)
[2020-07-23] MEDS: CLOPIDOGREL BISULFATE 75 MG TABLET (FP) PO SCH (09:07)
[2020-07-23] MEDS: HEPARIN NA (PORCINE) 5,000 UNITS/ML 1ML VIAL SQ SCH ×2 (09:08→22:47)
[2020-07-23] MEDS: TAMSULOSIN HCL 0.4 MG CAP PO SCH (09:08)
[2020-07-23] MEDS: ATORVASTATIN CA 10 MG TABLET (FP) PO SCH (22:47)
[2020-07-24] MEDS ORDERED: CEFEPIME HCL 1 GM VIAL (RESTRICTED TO ID) ONE ×3 (00:55→17:37)
[2020-07-24] MEDS ORDERED: DEXTROSE 5%-WATER - 50 ML IVPB ONE ×3 (00:55→17:37)
[2020-07-24] MEDS: CEFEPIME 1 GM in DEXTROSE 5%-WATER - 1 GM/50 ML IVPB IVPB SCH ×3 (01:24→17:38)
[2020-07-24] MEDS: glipiZIDE 5 MG TABLET (FP) PO SCH (06:23)
[2020-07-24] MEDS: RAMIPRIL 5 MG CAPSULE PO SCH (09:15)
[2020-07-24] MEDS: ASPIRIN COATED 81 MG TABLET.EC PO SCH (09:15)
[2020-07-24] MEDS: TAMSULOSIN HCL 0.4 MG CAP PO SCH (09:16)
[2020-07-24] MEDS: METOPROLOL TARTRATE 50 MG TABLET (FP) PO SCH (09:16)
[2020-07-24] MEDS: FAMOTIDINE 10 MG TABLET PO SCH (09:16)
[2020-07-24] MEDS: PARoxetine HCL 10 MG TABLET PO SCH (09:16)
[2020-07-24] MEDS: CLOPIDOGREL BISULFATE 75 MG TABLET (FP) PO SCH (09:17)
[2020-07-24] MEDS: HEPARIN NA (PORCINE) 5,000 UNITS/ML 1ML VIAL SQ SCH (09:17)
[2020-07-24 14:01] VITALS: BP 134/61; PULSE 61; TEMP 98
== END 2020-07-24 18:15 | DRG 193 ==
LOC: JER 18:29 → JERBED 21:24 → J4S 23:46
PROVIDERS: ADMIT Hospitalist; ATTEND Internal Medicine
DX: J18.9 Pneumonia, unspecified organism (principal); A41.89 Other specified sepsis; G45.9 Transient cerebral ischemic attack, unspecified; N17.9 Acute kidney failure, unspecified; G45.3 Amaurosis fugax; N39.0 Urinary tract infection, site not specified; Z79.84 Long term (current) use of oral hypoglycemic drugs; R26.89 Other abnormalities of gait and mobility; E78.5 Hyperlipidemia, unspecified; E66.9 Obesity, unspecified; N40.0 Benign prostatic hyperplasia without lower urinary tract symptoms; Z20.822 Contact with and (suspected) exposure to COVID-19; E11.319 Type 2 diabetes mellitus with unspecified diabetic retinopathy without macular edema; I69.398 Other sequelae of cerebral infarction; I12.9 Hypertensive chronic kidney disease with stage 1 through stage 4 chronic kidney disease, or unspecified chronic kidney disease; E11.22 Type 2 diabetes mellitus with diabetic chronic kidney disease; N18.9 Chronic kidney disease, unspecified; Z68.32 Body mass index [BMI] 32.0-32.9, adult
CPT/HCPCS: 36415; 70450-TC; 70544-TC; 70551-TC; 70552-TC; 71045-TC-FY; 71250-TC; 80048; 80053; 80061; 81003; 82308; 82550; 82728; 82962; 83615; 83721; 83735; 84100; 84484; 85025; 85379; 85651; 86038; 86140; 86157; 86162; 86225; 86431; 86738; 86769; 87040; 87086; 87899; 93005; 93010; 93225; 93226; 93306-TC; 93880-TC; 97116-GP; 97161-GP; 99285-25; C1887; C9803; J0131; J1644; U0003; U0005